=== PATIENT | female | born 1990 | race Caucasian/White ===

== ENCOUNTER → 2024-10-31 | Outpatient (CLI) | payer OTHER, SELFPAY ==
[2024-10-31 17:16] LABS: Barbiturate Urine NEGATIVE (< 200 ng/mL); Benzodiazepine Urine NEGATIVE (< 200 ng/mL); PCP Urine NEGATIVE (< 25 ng/mL); THC Urine NEGATIVE (< 50 ng/mL)
[2024-11-04 21:08] LABS: Chlamydia By Nucleic Acid AMP Negative (Negative); Gonococcus By Nucleic Acid AMP Negative (Negative)
== END | disposition home or self-care (01) ==
LOC: LABSPEC 16:14
PROVIDERS: PCP Family Medicine Geriatric Medicine; Visit Provider Advanced Practice Midwife
DX: O09.90 Supervision of high risk pregnancy, unspecified, unspecified trimester (principal); O99.320 Drug use complicating pregnancy, unspecified trimester; F12.90 Cannabis use, unspecified, uncomplicated; Z3A.00 Weeks of gestation of pregnancy not specified
CPT/HCPCS: 80307; 87086; 87088; 87491; 87591

== ENCOUNTER → 2024-11-11 | Outpatient (CLI) | payer OTHER, SELFPAY ==
[2024-11-11 16:40] LABS: Hematocrit 36.9 % (37-47); Hemoglobin 12.5 g/dL (12.0-15.0); Immature Granulocytes Count 0.060 X10^3/uL (0.0-0.0); Mean Corp Hgb Conc 33.9 g/dL (32-36); Mean Corpuscular Volume 86.0 fL (81-99); Mean Platelet Vol. 10.8 fl (6.2-12.0); NRBC Flagged by Analyzer 0 % (0-5); Platelet Count 270 K/mm3 (150-450); RBC Distribution Width CV 13.2 % (11.6-14.6); RBC Distribution Width SD 41.0 fl (35.1-43.9); Red Blood Count 4.29 M/mm3 (4.2-5.4); White Blood Count 11.7 K/mm3 (4.4-11.0)
[2024-11-11 19:24] LABS: HIV Nonreactive (Nonreactive); Hepatitis B Surface Antigen Nonreactive (Nonreactive); Hepatitis C Antibody Nonreactive (Nonreactive); Syphilis Antibodies Nonreactive (Nonreactive)
== END | disposition home or self-care (01) ==
PROVIDERS: PCP Family Medicine Geriatric Medicine; Visit Provider Advanced Practice Midwife
DX: O09.90 Supervision of high risk pregnancy, unspecified, unspecified trimester (principal); Z3A.00 Weeks of gestation of pregnancy not specified
CPT/HCPCS: 36415; 85025; 86703; 86762; 86780; 86803; 86850; 86900; 86901; 87340

== ENCOUNTER → 2025-03-11 | Outpatient (CLI) | payer OTHER, SELFPAY ==
--- OUTSIDE RECORDS SUMMARY | 2025-03-11 09:40 | XMS RPT_ITS | CCD ---
Author Organization [facility] Care Team Providers Care Area Coordinator Name Role Phone Norman Cervantes PA-C Unavailable Bebeto Iglesias, Shad Marrero Primary Care Provider Unavailable Primary Care Provider Shala Tate Jr., Shad Marrero Primary Care Provider Bebeto SIMPSON, Dr. Marrero Primary Care Provider Bebeto SIMPSON, Dr. Marrero Attending Provider [phone] Bebeto SIMPSON, Dr. Marrero Referring Provider Dr. Shagufta Berumen MD Attending Provider Ghazala Dee CNM Attending Provider Bebeto SIMPSON, Dr. Marrero Primary Care Provider [phone] Bebeto SIMPSON, Dr. Marrero Primary Care Physician Dr. Shagufta Berumen MD Attending Physician Ghazala Dee CNM Attending Physician [phone] Emilie Riggs DO Attending Physician MARCUS LEE Attending Unavailable SHAGUFTA BERUMEN Referring UnavailRosalinda Anthony Primary Care Unavailable Bin CASH APPLICATION CLERK-CTrista Attending Physician [phone] Ghazala Dee Attending Unavailable Janes Tate Primary Care Unavailable Janes Tate Referring Unavailable Janes Tate Primary Care Unavailable Emilie Riggs Attending UnavailShagufta Whitt Attending Unavailable Janes Tate Referring Unavailable Janes Tate Primary Care Unavailable Janes Tate Primary Care Unavailable Janes Tate Attending Unavailable Janes Tate Referring Unavailable Janes Tate Primary Care Unavailable Trista Steward NP Attending Unavailable Bebeto, Janes Referring Unavailable Ghazala Dee Attending Unavailable Janes Tate Primary Care Unavailable Ghazala Dee Attending Unavailable Janes Tate Referring Unavailable Janes Tate Primary Care Unavailable Janes Tate Referring Unavailable Bebeto, Janes Primary Care Unavailable Shagufta Berumen Attending Unavailable Ghazala Dee Attending Unavailable Bebeto, Janes Primary Care Unavailable Medications Current Medications Medication Drug Class(es) Dates Sig (Normalized) Sig (Original) Breast Pump device (1 source) Start: 01-16-2025 Breast Pump device Active 0 .ROUTE .MEDSUPPLY 1 0 January 16, 2025 12:00am As directed docosahexaenoic acid 200 mg oral capsule (7 sources) Start: 10-18-2024 Docosahexaenoic Acid ( Dha) 200 mg capsule Active mg PO October 18, 2024 12:00am Complies with drug therapy drospirenone / Ethinyl Estradiol (8 sources) Progestin, Estrogen Start: 08-12-2024 take 1 tablet by mouth once daily LO-ZUMANDIMINE, 28, 3-0.02 mg per tablet Indications: Encounter for surveillance of contraceptive pills TAKE ONE TABLET BY MOUTH DAILY, take active tablets only for continuous use, no placebos 112 tablet 08/12/2024 Active Start: 07-19-2023 End: 08-12-2024 take 1 tablet by mouth once daily, then take 1 tablet by mouth once daily Drospirenone-Ethinyl Estradiol (JON 28) 3-0.02 mg per tablet Indications: Encounter for surveillance of contraceptive pills Take 1 tablet by mouth once daily. TAKE 1 active TABLET BY MOUTH ONCE DAILY for continuous use; no placebos 112 tablet 3 07/19/2023 08/12/2024 Discontinued Start: 07-19-2023 take 1 tablet by cholo th once daily, then take 1 tablet by mouth once daily Drospirenone-Ethinyl Estradiol (JON 28) 3-0.02 mg per tablet Indications: Encounter for surveillance of contraceptive pills Take 1 tablet by mouth once daily. TAKE 1 active TABLET BY MOUTH ONCE DAILY for continuous use; no placebos 112 tablet 3 07/19/2023 Active Start: 07-13-2022 End: 07-19-2023 take 1 tablet by mouth once daily, then take 1 tablet by mouth once daily Drospirenone-Ethinyl Estradiol (JON 28) 3-0.02 mg per tablet Indications: Encounter for surveillance of contraceptive pills Take 1 tablet by mouth once daily. TAKE 1 active TABLET BY MOUTH ONCE DAILY for continuous use; no placebos 112 tablet 3 07/13/2022 07/19/2023 Discontinued Start: 07-13-2022 take 1 tablet by cholo th once daily, then take 1 tablet by mouth once daily Drospirenone-Ethinyl Estradiol (JON 28) 3-0.02 mg per tablet Indications: Encounter for surveillance of contraceptive pills Take 1 tablet by mouth once daily. TAKE 1 active TABLET BY MOUTH ONCE DAILY for continuous use; no placebos 112 tablet 3 07/13/2022 Active Start: 05-27-2022 End: 07-13-2022 take 1 tablet by mouth once daily Drospirenone-Ethinyl Estradiol (JON 28) 3-0.02 mg per tablet Indications: Encounter for surveillance of contraceptive pills TAKE 1 TABLET BY MOUTH ONCE DAILY 84 tablet 0 05/27/2022 07/13/2022 Discontinued Start: 05-27-2022 take 1 tablet by cholo th once daily Drospirenone-Ethinyl Estradiol (JON 28) 3-0.02 mg per tablet Indications: Encounter for surveillance of contraceptive pills TAKE 1 TABLET BY MOUTH ONCE DAILY 84 tablet 0 05/27/2022 Active Start: 05-19-2021 End: 05-27-2022 take 1 tablet by mouth once daily Drospirenone-Ethinyl Estradiol (JON 28) 3-0.02 mg per tablet Indications: Encounter for surveillance of contraceptive pills Take 1 tablet by mouth once daily. 84 tablet 3 05/19/2021 05/27/2022 Discontinued Comment on above: TAKE 1 TABLET BY CHOLO TH ONCE DAILY Take 1 tablet by cholo th once daily. Take 1 tablet by cholo th once daily. TAKE 1 active TABLET BY MOUTH ONCE DAILY for continuous use; no placebos Completed/Discontinued Medications Medication Drug Class(es) Dates Sig (Normalized) Sig (Original) amoxicillin 875 mg / clavulanate 125 mg oral tablet (1 source) Penicillin-class Antibacterial Start: 04-28-2023 End: 07-19-2023 take 1 tablet by mouth every twelve hours amoxicillin-clavu lanate potassium (AUGMENTIN) 875-125 mg per tablet Take 1 tablet by mouth every 12 hours. 0 04/28/2023 07/19/2023 Discontinued Comment on above: Take 1 tablet by cholo th every 12 hours. amphetamine aspartate 2.5 mg / amphetamine sulfate 2.5 mg / dextroamphetamine saccharate 2.5 mg / dextroamphetamine sulfate 2.5 mg oral tablet (10 sources) Central Nervous System Stimulant Start: 08-23-2024 End: 10-18-2024 take 1 tablet by mouth once daily Dextroamphetamine -Amphetamine (Adderall) 10 mg tablet Discontinued 10 mg PO daily 0 August 23, 2024 12:00am October 18, 2024 8:24am Start: 07-04-2022 take 1 tablet by cholo th twice daily dextroamphetamine-amphetamine (ADDERALL) 10 mg tablet Take 1 tablet by mouth twice daily. 07/04/2022 Active Comment on above: Take 1 tablet by cholo th twice daily. chlorhexidine gluconate 1.2 mg/ml mouthwash (2 sources) Start: 06-28-2022 End: 07-19-2023 Chlorhexidine Gluconate (PERIDEX) 0.12 % solution RINSE MOUTH WITH 1/2 OUNCE TWICE DAILY AFTER BREAKFAST AND BEFORE BEDTIME. SPIT OUT DO NOT SWALLOW. 0 06/28/2022 07/19/2023 Discontinued Comment on above: RINSE MOUTH WITH 1/2 OUNCE TWICE DAILY AFTER BREAKFAST AND BEFORE BEDTIME. SPIT OUT DO NOT SWALLOW. Multivitamin tablet (7 sources) Start: 08-23-2024 End: 10-18-2024 Multivitamin tablet Discontinued 1 {tbl} PO daily August 23, 2024 12:00am October 18, 2024 8:25am Problems Active Problems Problem Classification Problem Date Documented Date Episodic/Chronic Attention-deficit, conduct, and disruptive behavior disorders (20 sources) Attention deficit hyperactivity disorder; Translations: [Attention-deficit hyperactivity disorder, unspecified type] 10-18-2024 Chronic Comment on above: Stopped Adderall 6/2 4 (was on 5mg) Attention-deficit, conduct, and disruptive behavior disorders (1 source) Attention-deficit hyperactivity disorder, unspecified type; Translations: [Attention-deficit hyperactivity disorder, unspecified type] Onset: 11-29-2024 Chronic Contraceptive and procreative management (4 sources) Oral contraception; Translations: [Encounter for surveillance of contraceptive pills] Episodic Hemorrhage during ; abruptio placenta; placenta previa (3 sources) Low lying placenta; Translations: [Low lying placenta NOS or without hemorrhage, second trimester] Onset: 02-10-2025 01-16-2025 Episodic Comment on above: <1cm from os. Pelvic rest. Rpt US MFM 28 wk Menstrual disorders (3 sources) Irregular periods; Translations: [Irregular menstruation, unspecified] Onset: 10-18-2024 Chronic Other complications of (20 sources) High risk ; Translations: [Supervision of high risk , unspecified, unspecified trimester] 10-18-2024 Episodic Comment on above: , LV 06/03, Hus band: Janes PRR, , LV 06/03 , : Janes PRR, , girl LV 06/03, : Janes Other complications of (1 source) Supervision of high risk , unspecified, second trimester; Translations: [Supervision of high risk , unspecified, second trimester] Onset: 02-10-2025 Episodic Other complications of (1 source) Supervision of high risk , unspecified, unspecified trimester; Translations: [Supervision of high risk , unspecified, unspecified trimester] Onset: 11-29-2024 Episodic Other female genital disorders (1 source) Vaginal discharge; Translations: [Other specified noninflammatory disorders of vagina] 07-19-2023 Episodic Other and delivery including normal (20 sources) ; Translations: [Encounter for supervision of normal , unspecified, unspecified trimester] Onset: 2024 10-31-2024 Episodic Comment on above: Discussed genetic/ca rrier testing - desires genetic w/gender, undecided on carrier NIPT low risk girl, Carrier neg. Other screening for suspected conditions (not mental disorders or infectious disease) (9 sources) Cancer cervix screening status; Translations: [Encounter for screening for malignant neoplasm of cervix] Episodic Comment on above: neg pap and HPV 07/28 Residual codes; unclassified (1 source) Lifestyle; Translations: [Other problems related to lifestyle] 07-19-2023 Episodic Residual codes; unclassified (1 source) 23 weeks gestation of ; Translations: [23 weeks gestation of ] Onset: 02-10-2025 Episodic Residual codes; unclassified (1 source) 13 weeks gestation of ; Translations: [13 weeks gestation of ] Onset: 11-29-2024 Episodic Substance-related disorders (20 sources) Marijuana user; Translations: [Cannabis use, unspecified, uncomplicated] Onset: 02-10-2025 10-18-2024 Episodic Comment on above: Stopped; Last gummy 09/28. Random tox screen ordered Past or Other Problems Problem Classification Problem Date Documented Date Episodic/Chronic Residual codes; unclassified (1 source) 9 weeks gestation of ; Translations: [9 weeks gestation of ] Onset: 10-31-2024 Episodic Viral infection (19 sources) Oral herpes simplex infection; Translations: [Herpesviral gingivostomatitis and pharyngotonsillitis] Onset: 10-31-2024 10-18-2024 Episodic Results Test Name Value Interpretation Reference Range Facility Automotive Designer Office Visit Reporton 02-10-2025 Automotive Designer Office Visit Report [facility] [address], [address] [place] [address] OFFICE VISIT Date of Service: 02/10/25 MR#: [id number] Acct: [id number] Name: PENNIE NOLAND Rep #: [id number] : 1990 Provider: ANANT Renee ams Age/Sex: 34/F Location: [facility] Status: Signed Intake Vital Signs 11/29/24 08:49 12/26/24 14:34 01/16/25 14:03 02/10/25 14:58 02/10/25 15:00 Height 5 ft 9 in 5 ft 9 in 5 ft 9 in 5 ft 9 in 5 ft 9 in Weight: 183 lb 6 oz BMI 27.1 BP 120/75 Intake Visit Reasons: 23wk6d ob Traffic Control Operator Required: No Is patient in pain?: No Allergies No Known Allergies Allergy (Verified 02/10/25 14:58) Medications ???Medication ???Instructions ???Recorded ???Confirmed ???Type docosahexaenoic acid 200 mg mg PO 10/18/24 02/10/25 History capsule ( DHA) breast pump #1 ea 01/16/25 02/10/25 Rx Last Menstrual Period: 08/27/24 Zika: Zika virus screening: Negative : No PFSH PFSH Medical History ADHD Oral herpes Surgical History Wapella teeth removed Family History Mother Alcoholism Depression Suicide attempt Grandmother Alcoholism Brother Oral cancer Asthma Aunt Skin cancer Grandfather Skin cancer Social History adopted: No household members: spouse number of children: 0 current occupational status: employed 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/hazards: No pets and animals: No history of recent travel: Yes ([place] - frequent) out of state: Yes out of country: No sexually active: Yes Smoking Status: Never smoker second hand exposure: Yes (employee's at work) alcohol intake: current alcohol intake frequency: holidays/special occasions only details: Not while substance use type: marijuana diet: lactose free well-balanced diet: daily or most days caffeine: Yes (V8 energy ) Type: coffee eating out: 1-3 times/week during the past year weight has: remained stable what type of physical activity do you participate in: walking and other details: gym - crossfit frequency: 3-4 times per week duration: 15-30 minutes/day ravin/roman catholic: None seatbelt use: always do you feel safe at home: Yes additional social history: : Janes Guzman History 1 Elective abortions 0 Hx Para 0 Spontaneous abortions 0 Hx # Term Pregnancies Ectopic pregnancies Hx # Pregnancies Multiple births # of living children 0 HPI 23wk6d ob Details: PENNIE NOLAND is a 34 year old who presents for routine OB visit. OB Visit LV Calculator Estimated Delivery Date Method Current WG Current Estimate 06/03/25 LMP (Certain) 23w 6d Other Estimates 06/06/25 Ultrasound #1 23w 3d Expected Delivery Route/Plan Labor Preferences- CB/BF classes: [] labor support person: [] labor intervention preferences: [] pain management options preferred: [] cut cord/dad catch: [] : [] PP control planned: [] discussed possible routes of delivery and associated risks: [] special requests: [] Specific Issue/Plans Covid status: [] Flu vaccine: [] Tdap vaccine: [] Rhogam: [] LARC form signed: [] Problem list reviewed and updated with the most current plan of care details and appropriate orders placed. Relevant counseling for the gestational age provided. Continue routine care and follow up unless otherwise noted in visit notes/problem list details Initial Weight: 170 lb Date -???-???-???-???-?? ?-???-???-???-???-? ??-???-???- EGA Weight BP Urine Prot -???-???-???-???-?? ?-???-???-???-???-? ??-???-???- Glucose FHR FuHt Pres Dilation -???-???-???-???-?? ?-???-???-???-???-? ??-???-???- Effaced St Visit Note 10/31/24 -???-???-???-???-?? ?-???-???-???-???-? ??-???-???- 9w 2d 170 lb 8 oz (+8 oz) 124/80 -???-???-???-???-?? ?-???-???-???-???-? ??-???-???- 173 -???-???-???-???-?? ?-???-???-???-???-? ??-???-???- KW- CRL 2.07 and cons with dates. accepts NIPT 11/29/24 -???-???-???-???-?? ?-???-???-???-???-? ??-???-???- 13w 3d 174 lb 4 oz (+4 lb 4 oz) 114/65 Negative -???-???-???-???-?? ?-???-???-???-???-? ??-???-???- Negative 150 -???-???-???-???-?? ?-???-???-???-???-? ??-???-???- SM- no vb cr amping 12/26/24 -???-???-???-???-?? ?-???-???-???-???-? ??-???-???- 17w 2d 177 lb 9 oz (+7 lb 9 oz) 118/79 Negative -???-???-???-???-?? ?-???-???-???-???-? ??-???-???- Negative 147 -???-???-???-???-?? ?-???-???-???-???-? ??-???-???- JV- feeling some fluttering and has some numbness on the right. going to [place] (more content not included)... Normal [facility] - Chemistry and C hemistry - challengeOrdered By: Trista Steward on 01-16-2025 Glucose Ql (U) Negative [facility] - UrinalysisOrder ed By: Trista Steward on 01-16-2025 Protein Ql (U) Negative [facility] Automotive Designer Office Visit Reporton 01-16-2025 Automotive Designer Office Visit Report [facility] [address], [address] [place] [address] OFFICE VISIT Date of Service: 01/16/25 MR#: [id number] Acct: [id number] Name: LUDINPENNIE M Rep #: [id number] : 1990 Provider: BRANDEN montesinos Age/Sex: 34/F [facility] Status: Signed Intake Vital Signs 11/29/24 08:49 12/26/24 14:34 01/16/25 14:03 Height 5 ft 9 in 5 ft 9 in 5 ft 9 in Weight: 180 lb 4 oz BMI 26.6 BP 114/78 Intake Visit Reasons: 20wk2d ob Traffic Control Operator Required: No Is patient in pain?: No Allergies No Known Allergies Allergy (Unverified 01/16/25 14:03) Medications ???Medication ???Instructions ???Recorded ???Confirmed ???Type docosahexaenoic acid 200 mg mg PO 10/18/24 01/16/25 History capsule ( DHA) breast pump #1 ea 01/16/25 01/16/25 Rx Last Menstrual Period: 08/27/24 Zika: Zika virus screening: Negative : No PFSH PFSH Medical History ADHD Oral herpes Surgical History Wapella teeth removed Family History Mother Alcoholism Depression Suicide attempt Grandmother Alcoholism Brother Oral cancer Asthma Aunt Skin cancer Grandfather Skin cancer Social History adopted: No household members: spouse number of children: 0 current occupational status: employed 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/hazards: No pets and animals: No history of recent travel: Yes ([place] - frequent) out of state: Yes out of country: No sexually active: Yes Smoking Status: Never smoker second hand exposure: Yes (employee's at work) alcohol intake: current alcohol intake frequency: holidays/special occasions only details: Not while substance use type: marijuana diet: lactose free well-balanced diet: daily or most days caffeine: Yes (V8 energy ) Type: coffee eating out: 1-3 times/week during the past year weight has: remained stable what type of physical activity do you participate in: walking and other details: gym - crossfit frequency: 3-4 times per week duration: 15-30 minutes/day ravin/roman catholic: None seatbelt use: always do you feel safe at home: Yes additional social history: : [employer] History 1 Elective abortions 0 Hx Para 0 Spontaneous abortions 0 Hx # Term Pregnancies Ectopic pregnancies Hx # Pregnancies Multiple births # of living children 0 HPI 20wk2d ob Details: PENNIE NOLAND is a 34 year old who presents for routine OB visit. OB Visit LV Calculator Estimated Delivery Date Method Current WG Current Estimate 06/03/25 LMP (Certain) 20w 2d Other Estimates 06/06/25 Ultrasound #1 19w 6d Expected Delivery Route/Plan Labor Preferences- CB/BF classes: [] labor support person: [] labor intervention preferences: [] pain management options preferred: [] cut cord/dad catch: [] : [] PP control planned: [] discussed possible routes of delivery and associated risks: [] special requests: [] Specific Issue/Plans Covid status: [] Flu vaccine: [] Tdap vaccine: [] Rhogam: [] LARC form signed: [] Problem list reviewed and updated with the most current plan of care details and appropriate orders placed. Relevant counseling for the gestational age provided. Continue routine care and follow up unless otherwise noted in visit notes/problem list details Initial Weight: 170 lb Date -???-???-???-???-?? ?-???-???-???-???-? ??-???-???- EGA Weight BP Urine Prot -???-???-???-???-?? ?-???-???-???-???-? ??-???-???- Glucose FHR FuHt Pres Dilation -???-???-???-???-?? ?-???-???-???-???-? ??-???-???- Effaced St Visit Note 10/31/24 -???-???-???-???-?? ?-???-???-???-???-? ??-???-???- 9w 2d 170 lb 8 oz (+8 oz) 124/80 -???-???-???-???-?? ?-???-???-???-???-? ??-???-???- 173 -???-???-???-???-?? ?-???-???-???-???-? ??-???-???- KW- CRL 2.07 and cons with dates. accepts NIPT 11/29/24 -???-???-???-???-?? ?-???-???-???-???-? ??-???-???- 13w 3d 174 lb 4 oz (+4 lb 4 oz) 114/65 Negative -???-???-???-???-?? ?-???-???-???-???-? ??-???-???- Negative 150 -???-???-???-???-?? ?-???-???-???-???-? ??-???-???- SM- no vb cr amping 12/26/24 -???-???-???-???-?? ?-???-???-???-???-? ??-???-???- 17w 2d 177 lb 9 oz (+7 lb 9 oz) 118/79 Negative -???-???-???-???-?? ?-???-???-???-???-? ??-???-???- Negative 147 -???-???-???-???-?? ?-???-???-???-???-? ??-???-???- JV- feeling some fluttering and has some numbness on the right. going to [place] for a 'baby [place] 01/16/25 -???-???-? (more content not included)... Normal [facility] - Chemistry and C hemistry - challengeOrdered By: Emilie Up on 12-26-2024 Glucose Ql (U) Negative [facility] - UrinalysisOrder ed By: Emilie Jeovanny on 12-26-2024 Protein Ql (U) Negative [facility] Automotive Designer Office Visit Reporton 12-26-2024 Automotive Designer Office Visit Report [facility], [address] [place] [address] OFFICE VISIT Date of Service: 12/26/24 MR#: [id number] Acct: [id number] Name: PENNIE NOLAND Marcellus Rep #: [id number] : 1990 Provider: Dr. Emilie Rodriguez DO Age/Sex: 34/F Location: [facility] Status: Signed Intake Vital Signs 10/31/24 12:57 11/29/24 08:49 12/26/24 14:34 Height 5 ft 9 in 5 ft 9 in 5 ft 9 in Weight: 177 lb 9 oz BMI 26.2 BP 118/79 Intake Visit Reasons: 17 wk ob Chief Complaint: 17 Week OB Traffic Control Operator Required: No Is patient in pain?: No Allergies No Known Allergies Allergy (Unverified 12/26/24 14:34) Medications ???Medication ???Instructions ???Recorded ???Confirmed ???Type docosahexaenoic acid 200 mg mg PO 10/18/24 12/26/24 History capsule ( DHA) Last Menstrual Period: 08/27/24 Zika: Zika virus screening: Negative : No PFSH PFSH Medical History ADHD Oral herpes Surgical History Wapella teeth removed Family History Mother Alcoholism Depression Suicide attempt Grandmother Alcoholism Brother Oral cancer Asthma Aunt Skin cancer Grandfather Skin cancer Social History adopted: No household members: spouse number of children: 0 current occupational status: employed 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 occupational 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/hazards: No pets and animals: No history of recent travel: Yes ([place] - frequent) out of state: Yes out of country: No sexually active: Yes Smoking Status: Never smoker second hand exposure: Yes (employee's at work) alcohol intake: current alcohol intake frequency: holidays/special occasions only details: Not while substance use type: marijuana diet: lactose free well-balanced diet: daily or most days caffeine: Yes (V8 energy ) Type: coffee eating out: 1-3 times/week during the past year weight has: remained stable what type of physical activity do you participate in: walking and other details: gym - crossfit frequency: 3-4 times per week duration: 15-30 minutes/day ravin/roman catholic: None seatbelt use: always do you feel safe at home: Yes additional social history: : Janes Guzman History 1 Elective abortions 0 Hx Para 0 Spontaneous abortions 0 Hx # Term Pregnancies Ectopic pregnancies Hx # Pregnancies Multiple births # of living children 0 HPI 17 wk ob Details: PENNIE REDMOND is a 34 year old who presents for routine OB visit. OB Visit LV Calculator Estimated Delivery Date Method Current WG Current Estimate 06/03/25 LMP (Certain) 17w 2d Other Estimates 06/06/25 Ultrasound #1 16w 6d Expected Delivery Route/Plan Labor Preferences- CB/BF classes: [] labor support person: [] labor intervention preferences: [] pain management options preferred: [] cut cord/dad catch: [] : [] PP control planned: [] discussed possible routes of delivery and associated risks: [] special requests: [] Specific Issue/Plans Covid status: [] Flu vaccine: [] Tdap vaccine: [] Rhogam: [] LARC form signed: [] Problem list reviewed and updated with the most current plan of care details and appropriate orders placed. Relevant counseling for the gestational age provided. Continue routine care and follow up unless otherwise noted in visit notes/problem list details Initial Weight: 170 lb Date -???-???-???-???-?? ?-???-???-???-???-? ??-???-???- EGA Weight BP Urine Prot -???-???-???-???-?? ?-???-???-???-???-? ??-???-???- Glucose FHR FuHt Pres Dilation -???-???-???-???-?? ?-???-???-???-???-? ??-???-???- Effaced St Visit Note 10/31/24 -???-???-???-???-?? ?-???-???-???-???-? ??-???-???- 9w 2d 170 lb 8 oz (+8 oz) 124/80 -???-???-???-???-?? ?-???-???-???-???-? ??-???-???- 173 -???-???-???-???-?? ?-???-???-???-???-? ??-???-???- KW- CRL 2.07 and cons with dates. accepts NIPT 11/29/24 -???-???-???-???-?? ?-???-???-???-???-? ??-???-???- 13w 3d 174 lb 4 oz (+4 lb 4 oz) 114/65 Negative -???-???-???-???-?? ?-???-???-???-???-? ??-???-???- Negative 150 -???-???-???-???-?? ?-???-???-???-???-? ??-???-???- SM- no vb cr amping 12/26/24 -???-???-???-???-?? ?-???-???-???-???-? ??-???-???- 17w 2d 177 lb 9 oz (+7 lb 9 oz) 118/79 Negative -???-???-???-???-?? ?-???-???-???-???-? ??-???-???- Negative 147 -???-???-???-???-?? ?-???-???-???-???-? ??-???-???- JV- feeling some fluttering and has some numbness on the right. going to [place] for a 'baby longoria ACOG First Trimeste (more content not included)... Normal [facility] - Chemistry and C hemistry - challengeOrdered By: Shagufta Berumen on 11-29-2024 Glucose Ql (U) Negative [facility] - UrinalysisOrder ed By: Shagufta Berumen on 11-29-2024 Protein Ql (U) Negative [facility] [employer]er Office Visit Reporton 11-29-2024 Automotive Designer Office Visit Report [facility] [address], [address] [place] [address] OFFICE VISIT Date of Service: 11/29/24 MR#: [id number] Acct: [id number] Name: PENNIE REDMOND Rep #: [id number] : 1990 Provider: Dr. Shagufta mott MD Age/Sex: 34/F Location: [facility] Status: Signed Intake Vital Signs 10/31/24 12:57 11/29/24 08:49 Height 5 ft 9 in 5 ft 9 in Weight: 174 lb 4 oz BMI 25.7 BP 114/65 Intake Visit Reasons: 13wk OB Traffic Control Operator Required: No Is patient in pain?: No Allergies No Known Allergies Allergy (Unverified 11/29/24 08:55) Medications ???Medication ???Instructions ???Recorded ???Confirmed ???Type docosahexaenoic acid 200 mg mg PO 10/18/24 11/29/24 History capsule ( DHA) Last Menstrual Period: 08/27/24 Zika: Zika virus screening: Negative : No PFSH PFSH Medical History (Updated 11/29/24 @ 09:[address] 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/hazards: No pets and animals: No history of recent travel: Yes ([place] - frequent) out of state: Yes out of country: No sexually active: Yes Smoking Status: Never smoker second hand exposure: Yes (employee's at work) alcohol intake: current alcohol intake frequency: holidays/special occasions only details: Not while substance use type: marijuana diet: lactose free well-balanced diet: daily or most days caffeine: Yes (V8 energy ) Type: coffee eating out: 1-3 times/week during the past year weight has: remained stable what type of physical activity do you participate in: walking and other details: gym - crossfit frequency: 3-4 times per week duration: 15-30 minutes/day ravin/roman catholic: None seatbelt use: always do you feel safe at home: Yes additional social history: : Janes Guzman History 1 Elective abortions 0 Hx Para 0 Spontaneous abortions 0 Hx # Term Pregnancies Ectopic pregnancies Hx # Pregnancies Multiple births # of living children 0 HPI 13wk OB Details: PENNIE REDMOND is a 34 year old who presents for routine OB visit. OB Visit LV Calculator Estimated Delivery Date Method Current WG Current Estimate 06/03/25 LMP (Certain) 13w 3d Other Estimates 06/06/25 Ultrasound #1 13w 0d Expected Delivery Route/Plan Labor Preferences- CB/BF classes: [] labor support person: [] labor intervention preferences: [] pain management options preferred: [] cut cord/dad catch: [] : [] PP control planned: [] discussed possible routes of delivery and associated risks: [] special requests: [] Specific Issue/Plans Covid status: [] Flu vaccine: [] Tdap vaccine: [] Rhogam: [] LARC form signed: [] Problem list reviewed and updated with the most current plan of care details and appropriate orders placed. Relevant counseling for the gestational age provided. Continue routine care and follow up unless otherwise noted in visit notes/problem list details Initial Weight: 170 lb Date -???-???-???-???-?? ?-???-???-???-???-? ??-???-???- EGA Weight BP Urine Prot -???-???-???-???-?? ?-???-???-???-???-? ??-???-???- Glucose FHR FuHt Pres Dilation -???-???-???-???-?? ?-???-???-???-???-? ??-???-???- Effaced St Visit Note 10/31/24 -???-???-???-???-?? ?-???-???-???-???-? ??-???-???- 9w 2d 170 lb 8 oz (+8 oz) 124/80 -???-???-???-???-?? ?-???-???-???-???-? ??-???-???- 173 -???-???-???-???-?? ?-???-???-???-???-? ??-???-???- KW- CRL 2.07 and cons with dates. accepts NIPT 11/29/24 -???-???-???-???-?? ?-???-???-???-???-? ??-???-???- 13w 3d 174 lb 4 oz (+4 lb 4 oz) 114/65 Negative -???-???-???-???-?? ?-???-???-???-???-? ??-???-???- Negative 150 -???-???-???-???-?? ?-???-???-???-???-? ??-???-???- SM- no vb cr amping ACOG First Trimester First Trimester: Desire for , Alcohol, Tobacco Cessation, Illicit/Recreationa l Drug/Substance Use, Intimate Partner Violence, Barriers to care, Unstable Housing, Communication Bar riers, Environmental/Work Hazards, Anticipated Course of Care, Toxoplasmosis Precations, Use of Any medications, Sexual activity, Exercise, Dental Care, Sauna/Hot tub use, Seat Belt use, Chil (more content not included)... Normal [facility] Absolute lymphocyte countOrd ered By: Ghazala Dee on 11-11-2024 Lymphocytes Auto (Unsp spec) [#/Vol] 3.02 10*3/uL 0.83-4.51 [facility] Absolute neutrophil countOrd ered By: Ghazala Dee on 11-11-2024 Neutrophils (Bld) [#/Vol] 7.6 10*3/uL 2.0-7.7 [facility] Automated lymphocyte count a s percentage of total leukocytesOrdered By: Ghazala Dee on 11-11-2024 Lymphocytes/100 WBC Auto (Unsp spec) 25.9 % 19-41 [facility] Basophil percentageOrdered B y: Ghazala Dee on 11-11-2024 Basophils/100 WBC (Bld) 0.3 % 0-1 [facility] CBC W/Diff, Automatedon Absolute Lymph 3.02 X10 3/uL Normal 0.83-4.51 [facility] Comment on above: Performed By: #### L 509.8002, BTS, L3890.6301, L100.0100, L3890.6102, L900.0098, L509.4006, L3890.6006 #### [facility] [address] [place], [address] Absolute Neut 7.6 X10 3/uL Normal 2.0-7.7 [facility] Comment on above: Performed By: #### L 509.8002, BTS, L3890.6301, L100.0100, L3890.6102, L900.0098, L509.4006, L3890.6006 #### [facility] [address] [place], [address] Basophils/100 WBC (Bld) 0.3 % Normal 0-1 [facility] Comment on above: Performed By: #### L 509.8002, BTS, L3890.6301, L100.0100, L3890.6102, L900.0098, L509.4006, L3890.6006 #### [facility] [address] [place], [address] Eosinophils/100 WBC (Bld) 0.9 % Normal 0-5 [facility] Comment on above: Performed By: #### L 509.8002, BTS, L3890.6301, L100.0100, L3890.6102, L900.0098, L509.4006, L3890.6006 #### [facility] [address] [place], [address] Erythrocyte distribution width (RBC) [Ratio] 13.2 % Normal 11.6-14.6 [facility] Comment on above: Performed By: #### L 509.8002, BTS, L3890.6301, L100.0100, L3890.6102, L900.0098, L509.4006, L3890.6006 #### [facility] [address] [place], [address] Hematocrit (Bld) [Volume fraction] 36.9 % Low 37-47 [facility] Comment on above: Performed By: #### L 509.8002, BTS, L3890.6301, L100.0100, L3890.6102, L900.0098, L509.4006, L3890.6006 #### [facility] [address] [place], [address] Hemoglobin (Bld) [Mass/Vol] 12.5 g/dL Normal 12.0-15.0 [facility] Comment on above: Performed By: #### L 509.8002, BTS, L3890.6301, L100.0100, L3890.6102, L900.0098, L509.4006, L3890.6006 #### [facility] [address] [place], [address] IG% 0.500 Normal 0.0-0.9 [facility] Comment on above: Result Comment: IG% - Immature Granulocytes (promyelocytes, myelocytes and metamyelocytes) > 1% indicates that a LEFT SHIFT is Present. Performed By: #### L 509.8002, BTS, L3890.6301, L100.0100, L3890.6102, L900.0098, L509.4006, L3890.6006 #### [facility] [address] [place], [address] Lymphocytes/100 WBC (Bld) 25.9 % Normal 19-41 [facility] Comment on above: Performed By: #### L 509.8002, BTS, L3890.6301, L100.0100, L3890.6102, L900.0098, L509.4006, L3890.6006 #### [facility] [address] [place], [address] MCH (RBC) [Entitic mass] 29.1 pg Normal 27.0-32.0 [facility] Comment on above: Performed By: #### L 509.8002, BTS, L3890.6301, L100.0100, L3890.6102, L900.0098, L509.4006, L3890.6006 #### [facility] [address] [place], [address] MCHC (RBC) [Mass/Vol] 33.9 g/dL Normal 32-36 [facility] Comment on above: Performed By: #### L 509.8002, BTS, L3890.6301, L100.0100, L3890.6102, L900.0098, L509.4006, L3890.6006 #### [facility] [address] [place], [address] MCV (RBC) [Entitic vol] 86.0 fL Normal 81-99 [facility] Comment on above: Performed By: #### L 509.8002, BTS, L3890.6301, L100.0100, L3890.6102, L900.0098, L509.4006, L3890.6006 #### [facility] [address] [place], [address] Monocytes/100 WBC (Bld) 7.5 % Normal 0-10 [facility] Comment on above: Performed By: #### L 509.8002, BTS, L3890.6301, L100.0100, L3890.6102, L900.0098, L509.4006, L3890.6006 #### [facility] [address] [place], [address] Neutrophils/100 WBC (Bld) 64.9 % Normal 47-70 [facility] Comment on above: Performed By: #### L 509.8002, BTS, L3890.6301, L100.0100, L3890.6102, L900.0098, L509.4006, L3890.6006 #### [facility] [address] [place], [address] Nucleated RBC (Bld) [#/Vol] 0 10*3/uL Normal 0-5 [facility] Comment on above: Performed By: #### L 509.8002, BTS, L3890.6301, L100.0100, L3890.6102, L900.0098, L509.4006, L3890.6006 #### [facility] [address] [place], [address] Platelet mean volume (Bld) [Entitic vol] 10.8 fL Normal 6.2-12.0 [facility] Comment on above: Performed By: #### L 509.8002, BTS, L3890.6301, L100.0100, L3890.6102, L900.0098, L509.4006, L3890.6006 #### [facility] [address] [place], [address] Platelets (Bld) [#/Vol] 270 10*3/uL Normal 150-450 [facility] Comment on above: Performed By: #### L 509.8002, BTS, L3890.6301, L100.0100, L3890.6102, L900.0098, L509.4006, L3890.6006 #### [facility] [address] [place], [address] RBC (Bld) [#/Vol] 4.29 10*6/uL Normal 4.2-5.4 [facility] Comment on above: Performed By: #### L 509.8002, BTS, L3890.6301, L100.0100, L3890.6102, L900.0098, L509.4006, L3890.6006 #### [facility] [address] [place], [address] RDW SD 41.0 fl Normal 35.1-43.9 [facility] Comment on above: Performed By: #### L 509.8002, BTS, L3890.6301, L100.0100, L3890.6102, L900.0098, L509.4006, L3890.6006 #### [facility] [address] [place], [address] WBC (Bld) [#/Vol] 11.7 10*3/uL High 4.4-11.0 [facility] Comment on above: Performed By: #### L 509.8002, BTS, L3890.6301, L100.0100, L3890.6102, L900.0098, L509.4006, L3890.6006 #### [facility] [address] [place], [address] Eosinophil percentageOrdered By: Ghazala Dee on 11-11-2024 Eosinophils/100 WBC (Bld) 0.9 % 0-5 [facility] Erythrocyte distribution wid th ratioOrdered By: Ghazala Dee on 11-11-2024 Erythrocyte distribution width (RBC) [Ratio] 13.2 % 11.6-14.6 [facility] Erythrocyte distribution wid th standard deviationOrdered By: Ghazala Dee on 11-11-2024 Erythrocyte distribution width (RBC) [Ratio] 41.0 fl 35.1-43.9 [facility] HIVon 11-11-2024 HIV Non-Reactive Normal Nonreactive [facility] Comment on above: Result Comment: Non- Reactive Reactive Repeatedly reactive samples must be confirmed according to CDC recommended confirmatory algorithms. The subresults for either HIVAG or AHIV can be used as an aid in the selection of the confirmation algorithm for reactive samples. Send out specimens with Reactive results to [facility] for confirmation. Order the HIV antibody detection and differentiation: lc#[id number] Performed By: #### L 509.8002, BTS, L3890.6301, L100.0100, L3890.6102, L900.0098, L509.4006, L3890.6006 ####[facility] [address] [place], [address] Hematocrit Auto (Bld) [Volum e fraction]Ordered By: Ghazala Dee on 11-11-2024 Hematocrit (Bld) [Volume fraction] 36.9 % Low 37-47 [facility] Hemoglobin measurementOrdere d By: Ghazala Dee on 11-11-2024 Hemoglobin (Bld) [Mass/Vol] 12.5 g/dL 12.0-15.0 [facility] Hepatitis C Antibodyon 11-11 Hepatitis C Ab Non-Reactive Normal Nonreactive [facility] Comment on above: Result Comment: Reac tive: Presumptive evidence of antibodies to HCV. Follow CDC recommendations for supplemental testing. Non-Reactive: Antibodies to HCV were not detected; does not exclude the possibility of exposure to HCV Reactive Results are presumptive evidence of antibodies to HCV. Follow CDC recommendations for supplemental testing. Order confirmation testing: HCV Quant by PCR testing - HCVPCR #[id number] Non Reactive: < 0.8 Equivocal: >/= 0.8 to < 1.0 Reactive: >/= 1.0 The [facility] requires that a reactive/equivocal HCV antibody result be sent out for confirmation. HCV Quant by PCR testing. Performed By: #### L 509.8002, BTS, L3890.6301, L100.0100, L3890.6102, L900.0098, L509.4006, L3890.6006 ####[facility] [address] [place], [address] Immature granulocytes/100 WB C Auto (Bld)Ordered By: Ghazala Dee on 11-11-2024 Immature granulocytes/100 WBC (Bld) 0.500 % 0.0-0.9 [facility] Comment on above: IG% - Immature Granu locytes (promyelocytes, myelocytes and metamyelocytes) > 1% indicates that a LEFT SHIFT is Present. L3890.6102on 11-11-2024 HEP B Surf Ag Non-Reactive Normal Nonreactive [facility] Comment on above: Result Comment: Reac tive: Presumptive evidence of HBV. Repeatedly reactive samples must be confirmed using a neutralization test ([employer] HBsAg Confirmatory Test) Non-Reactive: HBsAg not detected; does not exclude the possibility of exposure to HBV Performed By: #### L 509.8002, BTS, L3890.6301, L100.0100, L3890.6102, L900.0098, L509.4006, L3890.6006 ####[facility] [address] [place], [address] L509.4006on 11-11-2024 Rubella IgG REAC Normal Nonreactive [facility] Comment on above: Result Comment: Anti body Result: Interpretation Non-Reactive: Non-Immune Reactive: Immune The following results were obtained with the [employer] Rubella IgG assay. Results from assays of other manufacturers cannot be used interchangeably. Performed By: #### L 509.8002, BTS, L3890.6301, L100.0100, L3890.6102, L900.0098, L509.4006, L3890.6006 #### [facility] [address] [place], [place], [id number] Laboratory - Microbiology an d Antimicrobial susceptibilityOrdered By: Ghazala Dee on 11-11-2024 HBV surface Ag Ql (S) Non-Reactive Nonreactive [facility] Comment on above: Reactive: Presumptiv e evidence of HBV. Repeatedly reactive samples must be confirmed using a neutralization test ([employer] HBsAg Confirmatory Test)Non-Reactive: HBsAg not detected; does not exclude the possibility of exposure to HBV MCV (mean corpuscular volume ) determinationOrdered By: Ghazala Dee on 11-11-2024 MCV (RBC) [Entitic vol] 86.0 fL 81-99 [facility] Mean corpuscular hemoglobin (MCH) determinationOrdered By: Ghazala Dee on 11-11-2024 MCH (RBC) [Entitic mass] 29.1 pg 27.0-32.0 [facility] Mean corpuscular hemoglobin concentration (MCHC) determinationOrdered By: Ghazala Dee on 11-11-2024 MCHC (RBC) [Mass/Vol] 33.9 g/dL 32-36 [facility] Mean platelet volume determi nationOrdered By: Ghazala Dee on 11-11-2024 Platelet mean volume (Bld) [Entitic vol] 10.8 fL 6.2-12.0 [facility] Monocyte percentageOrdered B y: Ghazala Dee on 11-11-2024 Monocytes/100 WBC (Bld) 7.5 % 0-10 [facility] NATERAon 11-11-2024 NATURA SEE SCANNED REPORT Normal [facility] Comment on above: Performed By: #### L 509.8002, BTS, L3890.6301, L100.0100, L3890.6102, L900.0098, L509.4006, L3890.6006 #### [facility] [address] [place], [address] Neutrophil percentageOrdered By: Ghazala Dee on 11-11-2024 Neutrophils/100 WBC (Bld) 64.9 % 47-70 [facility] No Panel InformationOrdered By: Ghazala Dee on 11-11-2024 HIV (1&2) Antibody Non-Reactive Nonreactive [facility] Comment on above: Non-ReactiveReactive Repeatedly reactive samples must be confirmed according to CDC recommended confirmatory algorithms. The subresults for either HIVAG or AHIV can be used as an aid in the selection of the confirmation algorithm for reactive samples.Send out specimens with Reactive results to [facility] for confirmation.Order the HIV antibody detection and differentiation: #[id number] Nucleated red blood cell per centageOrdered By: Ghazala Dee on 11-11-2024 Nucleated RBC/100 WBC (Bld) [Ratio] 0 % 0-5 [facility] Platelet countOrdered By: Edgar Dee on 11-11-2024 Platelets (Bld) [#/Vol] 270 10*3/uL 150-450 [facility] RBC Auto (Bld) [#/Vol]Ordere d By: Ghazala Dee on 11-11-2024 RBC (Bld) [#/Vol] 4.29 10*6/uL 4.2-5.4 [facility] Syphilis Antibodieson 2024 Syphilis Abs Non-Reactive Normal Nonreactive [facility] Comment on above: Performed By: #### L 509.8002, BTS, L3890.6301, L100.0100, L3890.6102, L900.0098, L509.4006, L3890.6006 ####[facility] [address] [place], [address] Type AND Screenon 11-11-2024 Ab SCREEN GEL Negative Normal [facility] Comment on above: Order Comment: PN Performed By: #### L 509.8002, BTS, L3890.6301, L100.0100, L3890.6102, L900.0098, L509.4006, L3890.6006 #### [facility] [address] [place], [address] White blood cell (WBC) count Ordered By: Ghazala Dee on 11-11-2024 WBC (Bld) [#/Vol] 11.7 10*3/uL High 4.4-11.0 [facility] Chlamydia/GC JILLIAN aptimaon CHLAMY,NUC ACID Negative Normal Negative [facility] Comment on above: Performed By: #### L 505.5000, M100.2200, L7000.1800 #### [facility] [address] [place], [address] GC BY NUC ACID Negative Normal Negative [facility] Comment on above: Result Comment: Perf ormed at: =G - [facility] [address] [id number] Die Cutter: Maritza Becerril MD, Phone: [phone] Performed By: #### L 505.5000, M100.2200, L7000.1800 #### [facility] [address] [place], [address] Urine Cultureon 11-02-2024 URC Below infection level. Mixed Gram Positive Organisms [place] Count 1000-10,000 MIXC Mixed contaminants. Submit a new specimen if indicated. Normal [facility] Comment on above: Performed By: #### L 505.5000, M100.2200, L7000.1800 #### [facility] [address] [place], [address] Amphetamine detection with 1 000 ng/mL as cutoffOrdered By: Ghazala Dee on 10-31-2024 Amphetamines Screen method >1000 ng/mL Ql (U) Negative < 200 ng/mL [facility] Chlamydia trachomatis rRNA d etection by probe and target amplification methodOrdered By: Ghazala Dee on 10-31-2024 C. trachomatis rRNA JILILAN+probe Ql (Unsp spec) Negative Negative [facility] Neisseria gonorrhoeae nuclei c acid detection by amplified probe techniqueOrdered By: Ghazala Dee on 10-31-2024 N. 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 Status: Signed Intake Vital Signs 10/18/24 09:06 10/31/24 12:57 Height 5 ft 9 in 5 ft 9 in Weight: 170 lb 8 oz BMI 25.2 BP 124/80 H Intake Visit Reasons: *NEW* NOB LMP 08/27, LV 06/03 Chief Complaint: New OB Traffic Control Operator Required: No Is patient in pain?: No Allergies No Known Allergies Allergy (Unverified 10/31/24 13:02) Medications ???Medication ???Instructions ???Recorded ???Confirmed ???Type docosahexaenoic acid 200 mg mg PO 10/18/24 10/31/24 History capsule ( DHA) Last Menstrual Period: 08/27/24 : Yes PFSH PFSH Surgical History [place] teeth removed Family History Mother Alcoholism Depression Suicide attempt Grandmother Alcoholism Brother Oral cancer Asthma Aunt Skin cancer Grandfather Skin cancer Social History adopted: No household members: spouse number of children: 0 current occupational status: employed 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/hazards: No pets and animals: No history of recent travel: Yes ([place] - frequent) out of state: Yes out of country: No sexually active: Yes Smoking Status: Never smoker second hand exposure: Yes (employee's at work) alcohol intake: current alcohol intake frequency: holidays/special occasions only details: Not while substance use type: marijuana diet: lactose free well-balanced diet: daily or most days caffeine: Yes (V8 energy ) Type: coffee eating out: 1-3 times/week during the past year weight has: remained stable what type of physical activity do you participate in: walking and other details: gym - crossfit frequency: 3-4 times per week duration: 15-30 minutes/day ravin/roman catholic: None seatbelt use: always do you feel safe at home: Yes additional social history: : Janes Guzman History 1 Elective abortions 0 Hx Para 0 Spontaneous abortions 0 Hx # Term Pregnancies Ectopic pregnancies Hx # Pregnancies Multiple births # of living children 0 HPI *NEW* NOB LMP 08/27, LV 06/03 Details: PENNIE REDMOND is a 33 year old who presents for New OB visit. OB Visit LV Calculator Estimated Delivery Date Method Current WG Current Estimate 06/03/25 LMP (Certain) 9w 2d Other Estimates 06/06/25 Ultrasound #1 8w 6d Estimated Due Date: 06/03/25 Expected Delivery Route/Plan Labor Preferences- CB/BF classes: [] labor support person: [] labor intervention preferences: [] pain management options preferred: [] cut cord/dad catch: [] : [] PP control planned: [] discussed possible routes of delivery and associated risks: [] special requests: [] Specific Issue/Plans Covid status: [] Flu vaccine: [] Tdap vaccine: [] Rhogam: [] LARC form signed: [] Problem list reviewed and updated with the most current plan of care details and appropriate orders placed. Relevant counseling for the gestational age provided. Continue routine care and follow up unless otherwise noted in visit notes/problem list details Initial Weight: 170 lb Date -???-???-???-???-?? ?-???-???-???-???-? ??-???-???- EGA Weight BP Urine Prot -???-???-???-???-?? ?-???-???-???-???-? ??-???-???- Glucose FHR FuHt Pres Dilation -???-???-???-???-?? ?-???-???-???-???-? ??-???-???- Effaced St Visit Note 10/31/24 -???-???-???-???-?? ?-???-???-???-???-? ??-???-???- 9w 2d 170 lb 8 oz (+8 oz) 124/80 -???-???-???-???-?? ?-???-???-???-???-? ??-???-???- 173 -???-???-???-???-?? ?-???-???-???-???-? ??-???-???- KW- CRL 2.07 and cons with dates. accepts NIPT Menstrual History Last Menstrual Period: 08/27/24 Reported LMP: definite Normal amount/duration: Yes (Stopped BC in June - was on for 11 years) Frequency in days: 31 On hormonal BC at conception: No hCG+: 10/01/24 Antepartum Record Genetic Screening: Congenital Heart Defect: Other, Neural Tube Defect: Other, Hemoglobinopathy Or Carrier: Other, Cystic Fibrosis: Other, Chromosome Abnormality: Other, Drew-Sachs: Other, Hemophilia: Other, Intellectual Disability/Autism: Other, Recurrent Loss/Stillbirth: Other, Other Structural Defect: Other, Other Genetic Disease: Other and Maternal Metabolic Disorder: Other Infection History: Live with someone with TB or Exposed to TB: No, Patient or Partner has hist (more content not included)... Normal [facility] Quantitative urine opiates m easurementOrdered By: Ghazala Dee on 10-31-2024 Opiates Ql (U) Negative < 300 ng/mL [facility] Screening urine fentanyl charo surementOrdered By: Ghazala Dee on 10-31-2024 fentaNYL Screen Ql (U) Negative [facility] Urine Drug Screen (VISTA)on 10-31-2024 AMPHETAMINES Negative Normal <1000 ng/mL [facility] Comment on above: Order Comment: UNK Performed By: #### L 505.5000, M100.2200, L7000.1800 #### [facility] [address] [place], [place], [facility] BARBITIURATES Negative Normal < 200 ng/mL [facility] Comment on above: Order Comment: UNK Performed By: #### L 505.5000, M100.2200, L7000.1800 #### [facility] [address] [place], [address] BENZODIAZIPINE Negative Normal < 200 ng/mL [facility] Comment on above: Order Comment: UNK Performed By: #### L 505.5000, M100.2200, L7000.1800 #### [facility] [address] [place], [address] BUP Ur Drug Scr Negative Normal < 200 ng/mL [facility] Comment on above: Order Comment: UNK Performed By: #### L 505.5000, M100.2200, L7000.1800 #### [facility] [address] [place], [address] COCAINE Negative Normal < 300 ng/mL [facility] Comment on above: Order Comment: UNK Performed By: #### L 505.5000, M100.2200, L7000.1800 #### [facility] [address] [place], [address] Fentanyl Negative Normal [facility] Comment on above: Order Comment: UNK Performed By: #### L 505.5000, M100.2200, L7000.1800 #### [facility] [address] [place], [address] METHADONE Negative Normal < 300 ng/mL [facility] Comment on above: Order Comment: UNK Performed By: #### L 505.5000, M100.2200, L7000.1800 #### [facility] [address] [place], [address] OPIATES Negative Normal < 300 ng/mL [facility] Comment on above: Order Comment: UNK Performed By: #### L 505.5000, M100.2200, L7000.1800 #### [facility] [address] [place], [address] OXYCODONE Negative Normal < 100 ng/mL [facility] Comment on above: Order Comment: UNK Performed By: #### L 505.5000, M100.2200, L7000.1800 #### [facility] [address] [place], [address] PCP Negative Normal < 25 ng/mL [facility] Comment on above: Order Comment: UNK Performed By: #### L 505.5000, M100.2200, L7000.1800 #### [facility] [address] [place], [address] THC Negative Normal < 50 ng/mL [facility] Comment on above: Order Comment: UNK Performed By: #### L 505.5000, M100.2200, L7000.1800 #### [facility] [address] [place], [address] Urine benzodiazepine levelOr dered By: Ghazala Dee on 10-31-2024 Benzodiazepines Ql (U) Negative < 200 ng/mL [facility] Urine cocaine levelOrdered B y: Ghazala Dee on 10-31-2024 Cocaine Ql (U) Negative < 300 ng/mL [facility] Urine cultureOrdered By: César Dee on 10-31-2024 Bacteria identified Cx Nom (U) Positive Abnormal [facility] Urine [id number]-0-xziidnirzeovrp abinol (THC) measurementOrdered By: Ghazala Dee on 10-31-2024 Cannabinoids Screen Ql (U) Negative < 50 ng/mL [facility] Urine phencyclidine (PCP) de tectionOrdered By: Ghazala Dee on 10-31-2024 Phencyclidine Ql (U) Negative < 25 ng/mL [facility] - Chemistry and C hemistry - challengeOrdered By: Shagufta Berumen on 10-18-2024 HCG ( test) Ql (U) Positive [facility] Office Visit Reporton 2024 Office Visit Report [facility] [address] [place], [place] [address], [place] [address] OFFICE VISIT Date of Service: 10/18/24 MR#: [id number] Acct: [id number] Patient: PENNIE REDMOND Rep #: [id number] : 1990 Provider: Dr. Shagufta mott MD Age/Sex: 33/F Location: [facility] Status: Signed Intake Vital Signs 10/18/24 09:06 Height 5 ft 9 in Weight: 170 lb BMI 25.1 BP 110/60 Intake Visit Reasons: PNOB Confirm , Vitals Chief Complaint: In person PNOB Is patient in pain?: No Allergies No Known Allergies Allergy (Unverified 10/18/24 08:23) Medications ???Medication ???Instructions ???Recorded ???Confirmed ???Type docosahexaenoic acid 200 mg mg PO 10/18/24 10/18/24 History capsule ( DHA) Is last menstrual period known: Yes Post menopausal: No Patient : Yes Nurse's Note: Pt here for secondary amenorrhea. Office UPT: positive. Vitals WNL. PNOB questions completed. Problem list, allergies, and medications updated. First trimester ACOG education completed. Results POC Urine Office , Urine Positive Last Edit by Cassie Garcia RN on 10/18/24 09:07 Assessment and Plan Assessment and Plan (1) Marijuana use: Status: Acute Comment: Stopped; Last gummy 09/28. Random tox screen ordered (2) Supervision of high-risk : Status: Acute Comment: , LV 06/03, : Janes (3) : Status: Acute Comment: Discussed genetic/carrier testing - desires genetic w/gender, undecided on carrier (4) Oral herpes: Status: Acute (5) ADHD: Status: Acute Comment: Stopped Adderall 10/01 (was on 5mg) Orders: Orders CBC W/Diff, Automated Today Ghazala Dee CNM O09.90 - Supervision of high risk , unspecified, unspecified trimester Type Screen Today Ghazala Dee CNM O09.90 - Supervision of high risk , unspecified, unspecified trimester Rubella IgG Today Ghazala Dee CNM O09.90 - Supervision of high risk , unspecified, unspecified trimester Hepatitis C Antibody Today Ghazala Dee CNM O09.90 - Supervision of high risk , unspecified, unspecified trimester Hepatitis B Surface Antigen Today Ghazala Dee CNM O09.90 - Supervision of high risk , unspecified, unspecified trimester Culture, Urine Today Ghazala Dee CNM O09.90 - Supervision of high risk , unspecified, unspecified trimester Syphilis Antibodies Today Ghazala Dee CNM O09.90 - Supervision of high risk , unspecified, unspecified trimester Chlamydia/GC JILLIAN aptima Today Ghazala Dee CNM O09.90 - Supervision of high risk , unspecified, unspecified trimester HIV Today Ghazala Dee CNM O09.90 - Supervision of high risk , unspecified, unspecified trimester Urine Drug Screen Today Ghazala Dee CNM F12.90 - Cannabis use, unspecified, uncomplicated, O09.90 - Supervision of high risk , unspecified, unspecified trimester TETE Today Ghazala Dee CNM O09.90 - Supervision of high risk , unspecified, unspecified trimester POC Urine Today Dr. Shagufta Berumen MD N91.1 - Secondary amenorrhea 10/18/24 1536 Date Shagufta Harris Signature: Date (if applicable) CC: Normal [facility] No Panel Informationon 07-18 Pap Human Papillomavirus Comment Negative [facility] 36on 06-22-2023 36 Patient submitted online appointment request, lm to c/b. Unsure of department or service requested. Please assist if patient calls back. FirstName : Pennie LastName : Nyla Pronouns : PronounsOther : Email : [email or web address] Phone : [phone] Birthdate : 1990 12:00:00 AM BestTimeToCallBack : Morning AppointmentDate : Soonest available PhysicianRequested : Symptoms : OptIn : False Normal [facility] OBSOLETEon 02-19-2021 OBSOLETE Refill ([id number]) ---- PENNIE REDMOND ([id number]) 1990 F Date Time Provider Department 02/19/21 NORMAN CERVANTES [id number] During your visit today, we recorded the following information about you: Norman Cervantes PA-C 02/19/2021 8:36 AM Signed Pt is due for annual next month; please call to schedule. CHARLIE Monzon 03/09/2021 10:07 AM Signed Left message to return call to office. Charleen Escobar Allergies As of Date: 02/19/2021 (No Known Allergies) Date Reviewed: 03/11/2020 Reviewed by: Norman Cervantes - Fully Assessed Reason for Visit: Refill Request [94] Visit Diagnosis:Encounter for surveillance of contraceptive pills [Z30.41] Order(s):Drospireno ne-Ethinyl Estradiol (JON 28) 3-0.02 mg per tabletTAKE ONE TABLET BY MOUTH ONCE DAILYDisp: 84 tabletRfl: 0 Prescriptions as of 03/09/2021 - Drospirenone-Ethiny l Estradiol (JON 28) 3-0.02 mg per tablet TAKE ONE TABLET BY MOUTH ONCE DAILY Problem List As Of Date: 02/19/2021 (None) Prescriptions ordered this encounter Disp Refills Start End DROSPIRENONE 3 MG-ETHINYL ESTRADIOL * 84 t* 0 02/19/2021 Sig: TAKE ONE TABLET BY MOUTH ONCE DAILY Medications Discontinued During This Encounter Prescriptions - Drospirenone-Ethiny l Estradiol (JON 28) 3-0.02 mg per tablet (Discontinued) Take 1 tablet by mouth once daily. Encounter Status:Closed by CHARLEEN ESCOBAR on 03/09/21 [facility] Vital Signs Date Time Vital Sign Value Performing Clinician Valeriei zan 01-16-2025 14:03-0400 Body height 175.[address] Janes Tate MD Work Phone: 1(699)377-894686 [address] 01-16-2025 14:03-0400 Body mass index (BMI) [Ratio] 26.6 kg/m2 Dr. Janes Tate MD Work Phone: 5(912)623-735655 [place] [address] 01-16-2025 14:03-0400 Body weight 81.[address] Janes Tate MD Work Phone: 9(080)881-439355 [place] [address] 01-16-2025 14:03-0400 Diastolic blood pressure 78 mm[Hg] Dr. Janes Tate MD Work Phone: 0(188)127-166655 [place] [address] 01-16-2025 14:03-0400 Systolic blood pressure 114 mm[Hg] Dr. Janes Tate MD Work Phone: [facility] 12-26-2024 14:34-0400 Body height 175.[address] Janes Tate MD Work Phone: [facility] 12-26-2024 14:34-0400 Body mass index (BMI) [Ratio] 26.2 kg/m2 Dr. Janes Tate MD Work Phone: 9(250)949-871941 [place] [address] 12-26-2024 14:34-0400 Body weight 80.[address] Janes Tate MD Work Phone: 8(901)368-529041 [place] [address] 12-26-2024 14:34-0400 Diastolic blood pressure 79 mm[Hg] Dr. Janes Tate MD Work Phone: 9(488)893-158341 [place] [address] 12-26-2024 14:34-0400 Systolic blood pressure 118 mm[Hg] Dr. Janes Tate MD Work Phone: 8(376)432-255541 [place] [address] 11-29-2024 08:49-0400 Body height 175.[address] Janes Tate MD Work Phone: 6(090)577-002841 [place] [address] 11-29-2024 08:49-0400 Body mass index (BMI) [Ratio] 25.7 kg/m2 Dr. Janes Tate MD Work Phone: 3(103)362-995441 [place] [address] 11-29-2024 08:49-0400 Body weight 79.[address] Janes Tate MD Work Phone: 0(284)148-233841 [place] [address] 11-29-2024 08:49-0400 Diastolic blood pressure 65 mm[Hg] Dr. Janes Tate MD Work Phone: 4(473)119-396941 [place] [address] 11-29-2024 08:49-0400 Systolic blood pressure 114 mm[Hg] Dr. Janes Tate MD Work Phone: 8(234)077-418341 [place] [address] 10-31-2024 12:57-0400 Body height 175.[address] Janes Tate MD Work Phone: 3(739)281-080241 [place] [address] 10-31-2024 12:57-0400 Body mass index (BMI) [Ratio] 25.2 kg/m2 Dr. Janes Tate MD Work Phone: 2(363)919-683941 [place] [address] 10-31-2024 12:57-0400 Body weight 77.[address] Janes Tate MD Work Phone: 3(306)955-074041 [place] [address] 10-31-2024 12:57-0400 Diastolic blood pressure 80 mm[Hg] Dr. Janes Tate MD Work Phone: [facility] 10-31-2024 12:57-0400 Systolic blood pressure 124 mm[Hg] Dr. Janes Tate MD Work Phone: [facility] 10-18-2024 09:06-0400 Body mass index (BMI) [Ratio] 25.1 kg/m2 Dr. Janes Tate MD Work Phone: [facility] 10-18-2024 09:06-0400 Body weight 77.[address] Janes Tate MD Work Phone: [facility] 10-18-2024 09:06-0400 Diastolic blood pressure 60 mm[Hg] Dr. Janes Tate MD Work Phone: [facility] 10-18-2024 09:06-0400 Systolic blood pressure 110 mm[Hg] Dr. Janes Tate MD Work Phone: [facility] 07-19-2023 09:05-0400 Body height 172.7 cm Norman Cervantes PA-C Work Phone: [facility] 07-19-2023 09:05-0400 Body weight 77.11 kg Norman Cervantes PA-C Work Phone: [facility] 07-19-2023 09:05-0400 Diastolic blood pressure 76 mm[Hg] Norman Cervantes PA-C Work Phone: [facility] 07-19-2023 09:05-0400 Systolic blood pressure 124 mm[Hg] Norman Cervantes PA-C Work Phone: [facility] 07-13-2022 09:19-0400 Body height 172.7 cm Norman Cervantes PA-C Work Phone: [facility] 07-13-2022 09:19-0400 Body weight 82.1 kg Norman Cervantes PA-C Work Phone: [facility] 07-13-2022 09:19-0400 Diastolic blood pressure 72 mm[Hg] Norman Cervantes PA-C Work Phone: [facility] 07-13-2022 09:19-0400 Systolic blood pressure 136 mm[Hg] Norman Cervantes PA-C Work Phone: [facility] Encounters Encounter Date Encounter Type Care Provider Facility Start: 02-10-2025 End: 02-10-2025 ambulatory Janes Tate Facility:[facility] Start: 01-16-2025 End: 01-16-2025 Patient encounter procedure Trista OTERO -[facility] Work Phone: Start: 01-16-2025 End: 01-16-[address] Janes Tate MD Work Phone: -[facility] Start: 01-07-2025 End: 01-07-2025 ambulatory [facility] Start: 12-26-2024 End: 12-26-[address] Emilie Riggs DO -[facility] Work Phone: Start: 12-26-2024 End: 12-26-[address] Janes Tate MD Work Phone: -[facility] Start: 11-29-2024 End: 11-29-[address] Shagufta Berumen MD -[facility] Work Phone: Start: 11-29-2024 End: 11-29-[address] Janes Tate MD Work Phone: -[facility] Start: 11-11-2024 End: 11-11-[address] Janes Tate MD Work Phone: -[facility] Start: 11-11-2024 End: 11-11-2024 Patient encounter procedure Ghazala Dee [facility] -Lab [facility] Start: 11-11-2024 End: 11-11-2024 ambulatory Ghazala Dee Facility:[facility] Start: 10-31-2024 End: 10-31-[address] Janes Tate MD Work Phone: -Laboratory Specimen Start: 10-31-2024 End: 10-31-2024 Patient encounter procedure Ghazala Dee CN -Laboratory Specimen Work Phone: Start: 10-31-2024 End: 10-31-2024 Patient encounter procedure Ghazala Dee CNM -[facility] Work Phone: Start: 10-31-2024 End: 10-31-[address] Janes Tate MD Work Phone: -[facility] Start: 10-31-2024 End: 10-31-2024 ambulatory Ghazala Dee Facility:[facility] Start: 10-18-2024 End: 10-18-[address] Shagufta Berumen MD -[facility] Work Phone: Start: 10-18-2024 End: 10-18-[address] Janes Tate MD Work Phone: -[facility] Start: 08-12-2024 End: 08-12-2024 Refill Norman Cervantes PA-C Work Phone: [employer] [facility] Comment on above: Refill Request Start: 07-18-2024 ambulatory Janes Tate Facility:[facility] Start: 07-18-2024 Non-patient / Non-visit Dr. Janes Preston MD -[facility] Work Phone: Start: 07-19-2023 End: 07-19-2023 Patient encounter procedure Norman Cervantes PA-C Work Phone: [employer] [facility] Comment on above: Women's annual routi ne gynecological examination (Primary Dx); Screening for malignant neoplasm of cervix; Encounter for surveillance of contraceptive pills; Vaginal discharge; Other problems related to lifestyle; Irregular bleeding Start: 06-22-2023 Telephone encounter Ti reina MD Work Phone: [facility] Comment on above: Appointment Request Start: 07-13-2022 End: 07-13-2022 Patient encounter procedure Normanhilda JohnsonCeciliajillian Cervantes PA-C Work Phone: [employer] [facility] [employer] Comment on above: Women's annual routi ne gynecological examination (Primary Dx); Screening for malignant neoplasm of cervix; Encounter for surveillance of contraceptive pills; Irregular bleeding Start: 05-27-2022 Refill Norman Bray yuri Cervantes PA-C Work Phone: [employer] [facility] Comment on above: Refill Request Procedures Date Procedure Procedure Detail Performing Clinician Start: 11-11-2024 Hepatitis C antibody measurement Dr. Janes Tate MD Work Phone: Comment on above: Reactive: Presumptiv e evidence of antibodies to HCV. Follow CDC recommendations for supplemental testing.Non-Reactive: Antibodies to HCV were not detected; does not exclude the possibility of exposure to HCVReactive Results are presumptive evidence of antibodies to HCV. Follow CDC recommendations for supplemental testing.Order confirmation testing: HCV Quant by PCR testing - HCVPCR #[id number] Non Reactive: < 0.8 Equivocal: >/= 0.8 to < 1.0 Reactive: >/= 1.0The CDC requires that a reactive/equivocal HCV antibody result be sent out for confirmation. HCV Quant by PCR testing. Start: 11-11-[address] Janes Tate MD Work Phone: Start: 11-11-[address] Janes Tate MD Work Phone: Comment on above: Antibody Result: Int erpretationNon-Reactive: Non- ImmuneReactive: ImmuneThe following results were obtained with the [employer] Rubella IgG assay. Results from assays of other manufacturers cannot be used interchangeably. Start: 11-11-2024 Serologic test for syphilis Dr. Janes Tate MD Work Phone: Start: 10-31-2024 Methadone measurement, urine Dr. Janes Tate MD Work Phone: Start: 10-31-[address] Janes Tate MD Work Phone: Plan of Treatment Date Care Activity Detail Author Start: 07-18-2028 Screening for malignant neoplasm of cervix Cervical Cancer Screening [facility] Start: 07-14-2027 Screening for malignant neoplasm of cervix Pap Testing [facility] Start: 12-09-2024 Influenza vaccination Influenza Vaccine (Season Ended) [facility] Start: 05-19-2024 PAP TESTING PAP TESTING [facility] Start: 12-10-2023 Covid-19 Vaccine ( season) Covid-19 Vaccine ( season) [facility] Start: 12-10-2023 Influenza vaccination Influenza Vaccine (Season Ended) [facility] Start: 07-19-2023 End: 10-18-2023 CHLAMYDIA/N.GONORRHOEAE,T .VAGINALIS,RNA,QL,TMA,PAP VIAL CHLAMYDIA/N.GONORRHOEAE, T.VAGINALIS,RNA,QL,TMA,P AP VIAL Lab Routine Vaginal discharge Other problems related to lifestyle Expected: 07/19/2023, Expires: 10/18/2023 [employer] Phone: Comment on above: Expected: 07/19/2023, Expires: Start: 07-19-2023 End: 10-18-2023 Hepatitis B virus surface Ag [Presence] in Serum HEP B SURF AG CONFRM Lab Routine Vaginal discharge Other problems related to lifestyle Expected: 07/19/2023, Expires: 10/18/2023 [employer] Phone: Comment on above: Expected: 07/19/2023, Expires: Start: 07-19-2023 End: 10-18-2023 Hepatitis C virus Ab [Presence] in Serum HEPATITIS C ANTIBODY IA WITH CONFIRMATION Lab Routine Vaginal discharge Other problems related to lifestyle Expected: 07/19/2023, Expires: 10/18/2023 [employer] Phone: Comment on above: Expected: 07/19/2023, Expires: Start: 07-19-2023 End: 10-18-2023 HERPES SIMPLEX TYPE 1 AND 2 IG HERPES SIMPLEX TYPE 1 AND 2 IG Lab Routine Vaginal discharge Other problems related to lifestyle Expected: 07/19/2023, Expires: 10/18/2023 [employer] Phone: Comment on above: Expected: 07/19/2023, Expires: Start: 07-19-2023 End: 10-18-2023 HIV 1+2 Ab [Presence] in Serum or Plasma by Immunoassay HIV 1/2 COMBO WITH REFLEX TO DIFFERENTIATION Lab Routine Vaginal discharge Other problems related to lifestyle Expected: 07/19/2023, Expires: 10/18/2023 [employer] Phone: Comment on above: Expected: 07/19/2023, Expires: Start: 07-19-2023 End: 10-18-2023 SYPHILIS ANTIBODY CASCADING REFLEX SYPHILIS ANTIBODY CASCADING REFLEX Lab Routine Vaginal discharge Other problems related to lifestyle Expected: 07/19/2023, Expires: 10/18/2023 [employer] Phone: Comment on above: Expected: 07/19/2023, Expires: Start: 04-10-2023 Behavioral Health Screening Behavioral Health Screening [facility] Start: 12-09-2022 Covid-19 Vaccine ( season) Covid-19 Vaccine ( season) [facility] Start: 12-09-2022 Influenza vaccination INFLUENZA (Season Ended) [facility] Start: 2022 Screening for malignant neoplasm of cervix HPV Testing [facility] Start: 04-10-2022 DEPRESSION ASSESSMENT DEPRESSION ASSESSMENT [facility] Start: 12-09-2021 Influenza vaccination INFLUENZA (#1) [facility] Start: 11-16-2011 Hepatitis B Vaccine (1 of 3 - 19+ 3-dose series) Hepatitis B Vaccine (1 of 3 - 19+ 3-dose series) [facility] Start: 11-16-2011 Urine microalbumin profile [facility] Start: 2010 Anxiety Screening Anxiety Screening [facility] Start: 2010 Depression Screening Depression Screening [facility] Start: 2010 HEPATITIS C SCREENING HEPATITIS C SCREENING [facility] Start: 2010 Hepatitis C screening Hepatitis C Screening [facility] Start: 2010 HIV SCREENING HIV SCREENING [facility] Start: 2010 HIV screening HIV Screening [facility] Start: 05-18-1993 COVID-19 VACCINE (#1) COVID-19 VACCINE (#1) [facility] Start: 1992 HEPATITIS B (1 of 3 - 3-dose series) HEPATITIS B (1 of 3 - 3-dose series) [facility] CBC W Auto Different ial panel - Blood [facility] Chlamydia deoxyribonucleic acid detection [facility] Drugs identified in Urine by Screen method [facility] Hepatitis C antibody measurement [facility] PAP REFLEX HPV MRNA WHEN ASCUS PAP REFLEX HPV MRNA WHEN ASCUS Lab Routine Women's annual routine gynecological examination Screening for malignant neoplasm of cervix Ordered: 07/13/2022 [employer] Phone: Comment on above: Ordered: 07/13/2022 PAP/HPV MRNA E6/E7 R FX HPV 16,18/45 PAP/HPV MRNA E6/E7 RFX HPV 16,18/45 Lab Routine Screening for malignant neoplasm of cervix Ordered: 07/19/2023 [employer] Phone: Comment on above: Ordered: 07/19/2023 Procedure [facility] Rubella IgG measurement [facility] Serologic test for syphilis [facility] Payers Date Payer Category Payer Unknown [id number] 2024 Self-pay 1990 Unknown [id number] Unknown [id number] Unknown [id number] 2.16.8 [id number] Unknown [id number] 2.16.8 [id number] Unknown [id number] 2.16.8 [id number] Unknown [id number] 2.16.8 [id number] Unknown [id number] 2.16.8 [id number] Unknown [id number] 2.16.8 [id number] Unknown [id number] 2.16.8 [id number] Unknown [id number] 2.16.8 [id number] Social History Date Type Detail Facility Start: 07-03-2018 End: 10-18-2024 Tobacco smoking status NHIS Never smoked tobacco [facility] Start: 07-03-2018 End: 07-19-2023 Tobacco use and exposure Smokeless tobacco non-user [facility] Start: 05-19-2021 End: 07-19-2023 Alcohol intake Current drinker of alcohol (finding) [facility] Start: 1990 Sex Assigned At Not on file [facility] Tobacco smoking stat [facility] Tobacco smoking consumption unknown [facility] Start: 07-19-2023 Gender identity Not on file [facility] Work Phone: Start: 07-19-2023 History of Social function [facility] Work Phone: Adult Depression Screening Assessment 0 [facility] Work Phone: Start: 1990 Sex Assigned At Female [facility] Clinical Notes 05-19-2021 to 01-16-2025 Note Date & Type Note Facility 01-16-2025 Progress note [facility] 01-16-2025 Progress note Note Date/Time January 16, 2025 2:17pm [facility] [address] [place] [address], [address] [place] [address] OFFICE VISIT Date of Service: 01/16/25 MR#: [id number] Acct: [id number] Name: PENNIE NOLAND Rep #: [id number] : 1990 Provider: BRANDEN Steward Age/Sex: 34/F Location: 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: No Is patient in pain?: No Allergies No Known Allergies Allergy (Unverified 01/16/25 14:03) Medications ?Medication ?Instructions ?Recorded ?Confirmed ?Type docosahexaenoic acid 200 mg mg PO 10/18/24 01/16/25 Hi story capsule ( DHA) breast pump #1 ea 01/16/25 01/16/25 Rx Last Menstrual Period: 08/27/24 Zika: Zika virus screening: Negative : No PFSH PFSH Medical History ADHD Oral herpes Surgical History [place] teeth removed Family History Mother Alcoholism Depression Suicide attempt Grandmother Alcoholism Brother Oral cancer Asthma Aunt Skin cancer Grandfather Skin cancer Social History adopted: No household members: spouse number of children: 0 current occupational status: employed 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[employer]) current occupational exposures/hazards: No pets and animals: No history of recent travel: Yes ([place] - frequent) out of state: Yes out of country:No sexually active: Yes Smoking Status: Never smoker second hand exposure: Yes (employee's at work) alcohol intake: current alcohol intake frequency: holidays/special occasions only details: Not while substance use type: marijuana diet: lactose free well-balanced diet: daily or most days caffeine: Yes (V8 energy ) Type: coffee eating out: 1-3 times/week during the past year weight has: remained stable what type of physical activity do you participate in: walking and other details: gym - crossfit frequency: 3-4 times per week duration: 15-30 minutes/day ravin/roman catholic: None seatbelt use: always do you feel safe at home: Yes additional social history: : Janes Guzman History 1 Elective abortions 0 Hx Para 0 Spontaneous abortions 0 Hx # Term Pregnancies Ectopic pregnancies Hx # Pregnancies Multiple births # of living children 0 HPI 20wk2d ob Details: PENNIE NOLAND is a 34 year old who presents for routine OB visit. OB Visit LV Calculator Estimated Delivery Date Method Current WG Current Estimate 06/03/25 LMP (Certain) 20w 2d Other Estimates 06/06/25 Ultrasound #1 19w 6d Expected Delivery Route/Plan Labor Preferences- CB/BF classes: [] labor support person: [] labor intervention preferences: [] pain management options preferred: [] cut cord/dad catch: [] : [] PP control planned: [] discussed possible routes of delivery and associated risks: [] special requests: [] Specific Issue/Plans Covid status: [] Flu vaccine: [] Tdap vaccine: [] Rhogam: [] LARC form signed: [] Problem list reviewed and updated with the most current plan of care details and appropriate orders placed. Relevant counseling for the gestational age provided. Continue routine care and follow up unless otherwise noted in visit notes/problem list details Initial Weight: 170 lb Date -?-?-?-?-?-?-?-?-?-?-?-?- EGA Weight BP Urine Prot -?-?-?-?-?-?-?-?-?-?-?-?- Glucose FHR FuHt Pres Dilation -?-?-?-?-?-?-?-?-?-?-?-?- Effaced St Visit Note 10/31/24 -?-?-?-?-?-?-?-?-?-?-?-?- 9w 2d 170 lb 8 oz (+8 oz) 124/80 -?-?-?-?-?-?-?-?-?-?-?-?- 173 -?-?-?-?-?-?-?-?-?-?-?-?- KW- CRL 2.07 and cons with dates. accepts NIPT 11/29/24 -?-?-?-?-?-?-?-?-?-?-?-?- 13w 3d 174 lb 4 oz (+4 lb 4 oz) 114/65 Negative -?-?-?-?-?-?-?-?-?-?-?-?- Negative 150 -?-?-?-?-?-?-?-?-?-?-?-?- SM- no vb crampi ng 12/26/24 -?-?-?-?-?-?-?-?-?-?-?-?- 17w 2d 177 lb 9 oz (+7 lb 9 oz) 118/79 Negative -?-?-?-?-?-?-?-?-?-?-?-?- Negative 147 -?-?-?-?-?-?-?-?-?-?-?-?- JV- feeling some fluttering and has some numbness on the right. going to [place] for a 'baby long[place] 01/16/25 -?-?-?-?-?-?-?-?-?-?-?-?- 20w 2d 180 lb 4 oz (+10 lb 4 oz) 114/78 Negative -?-?-?-?-?-?-?-?-?-?-?-?- Negative 150 -?-?-?-?-?-?-?-?-?-?-?-?- MH-No VB. Alfonso Freed Reviewed pelvic rest instructions ACOG First Trimester First Trimester: Desire for , Alcohol, Tobacco Cessation, Illicit/Recreational Drug/Substance Use, Intimate Partner Violence, Barriers to care, Unstable Housing, Communication Barriers, Environmental/Work Hazards, Anticipated Course of Care, Toxoplasmosis Precations, Use of Any medications, Sexual activity, Exercise, Dental Care, Sauna/Hot tub use, Seat Belt use, Childbirth classes/Hospital facilities, Travel, Indications for Ultrasound and Screening for Aneuploidy; Discussed Second Trimester Second Trimester: Signs and Symptoms of Labor, Selecting a care provider, Reproductive Life Planning & Contreception, Care Planning, Depression/Anxiety and Intimate Partner Violence; Discussed Tobacco Cessation Third Trimester Third Trimester: Pain Management Plans, Labor support person(s), Immediate Larc, Signs and Symptoms of Preeclampsia, Feeding No , Education and Family Medical Leave or Disability Forms ROS Const Reports system reviewed and no additional complaints, except as documented GI Denies abdominal pain, Denies nausea and Denies vomiting Exam Const General: cooperative Nutritional Appearance: well nourished GI Palpation: soft, nontender and other (gravid) Results POC Urinalysis 2 Dip (Clinic) Office Urine Glucose Negative Last Edit by Florinda Hoffman on 01/16/25 14 :03 Office Urine Protein Negative Last Edit by Florinda Hoffman on 01/16/25 14 :03 Coding Level of Care Code OB Routine Diagnoses Supervision of high risk in second trimester O09.92 Trimester: second trimester 20 weeks gestation of Z3A.20 Weeks of gestation: 20 weeks Marijuana use F12.90 Low lying placenta nos or without hemorrhage, second trimester O44.42 Assessment and Plan Assessment and Plan (1) Supervision of high-risk : Status: Acute Qualifiers: Trimester: second trimester Qualified Code(s): O09.92 - Supervision of high risk , unspecified, second trimester Comment: PRR, , girl LV 06/03, : Janes (2) : Status: Acute Qualifiers: Weeks of gestation: 20 weeks Qualified Code(s): Z3A.20 - 20 weeks gestation of Comment: NIPT low risk girl, Carrier neg. (3) Marijuana use: Status: Acute Comment: Stopped; Last gummy 09/28. Random tox screen ordered (4) Low lying placenta nos or without hemorrhage, second trimester: Status: Acute Comment: <1cm from os. Pelvic rest. Rpt US MFM 28 wk Orders: Orders POC Urinalysis 2 Dip (Clinic) Today Medications: New breast pump As directed 1 ea 0RF Plan problem list reviewed and updated for most current plan of care and appropriate orders placed. Relevant counseling for the gestational age appropriate provided and ACOG education checklist updated. Continue routine care and follow up. 01/16/25 1420 <Electronically signed by Trista michaels NP CASH APPLICATION CLERK-C> Date _ Trista Steward NP CASH APPLICATION CLERK-C Cosigner Signature: Date (if applicable) CC: ~ [facility] Work Phone: 1(169) 989-573909-18-2025 [facility] [address], [address] [place] [address] OFFICE VISIT Date of Service: 12/26/24 MR#: [id number] Acct: [id number] Name: PENNIE NOLAND Rep #: [id number] : 1990 Provider: Dr. Alisa Riggs DO Age/Sex: 34/F Location: [facility] Status: Signed Intake Vital Signs 10/31/24 12:57 11/29/24 08:49 12/26/24 14:34 Height 5 ft 9 in 5 ft 9 in 5 ft 9 in Weight: 177 lb 9 oz BMI 26.2 BP 118/79 Intake Visit Reasons: 17 wk ob Chief Complaint: 17 Week OB Traffic Control Operator Required: No Is patient in pain?: No Allergies No Known Allergies Allergy (Unverified 12/26/24 14:34) Medications ?Medication ?Instructions ?Recorded ?Confirmed ?Type docosahexaenoic acid 200 mg mg PO 10/18/24 12/26/24 Hi story capsule ( DHA) Last Menstrual Period: 08/27/24 Zika: Zika virus screening: Negative : No PFSH PFSH Medical History ADHD Oral herpes Surgical History [place] teeth removed Family History Mother Alcoholism Depression Suicide attempt Grandmother Alcoholism Brother Oral cancer Asthma Aunt Skin cancer Grandfather Skin cancer Social History adopted: No household members: spouse number of children: 0 current occupational status: employed 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) current occupational exposures/hazards: No pets and animals: No history of recent travel: Yes ([place] - frequent) out of state: Yes out of country:No sexually active: Yes Smoking Status: Never smoker second hand exposure: Yes (employee's at work) alcohol intake: current alcohol intake frequency: holidays/special occasions only details: Not while substance use type: marijuana diet: lactose free well-balanced diet: daily or most days caffeine: Yes (V8 energy ) Type: coffee eating out: 1-3 times/week during the past year weight has: remained stable what type of physical activity do you participate in: walking and other details: gym - crossfit frequency: 3-4 times per week duration: 15-30 minutes/day ravin/roman catholic: None seatbelt use: always do you feel safe at home: Yes additional social history: : Janes Guzman History 1 Elective abortions 0 Hx Para 0 Spontaneous abortions 0 Hx # Term Pregnancies Ectopic pregnancies Hx # Pregnancies Multiple births # of living children 0 HPI 17 wk ob Details: PENNIE REDMOND is a 34 year old who presents for routine OB visit. OB Visit LV Calculator Estimated Delivery Date Method Current WG Current Estimate 06/03/25 LMP (Certain) 17w 2d Other Estimates 06/06/25 Ultrasound #1 16w 6d Expected Delivery Route/Plan Labor Preferences- CB/BF classes: [] labor support person: [] labor intervention preferences: [] pain management options preferred: [] cut cord/dad catch: [] : [] PP control planned: [] discussed possible routes of delivery and associated risks: [] special requests: [] Specific Issue/Plans Covid status: [] Flu vaccine: [] Tdap vaccine: [] Rhogam: [] LARC form signed: [] Problem list reviewed and updated with the most current plan of care details and appropriate ordersplaced. Relevant counseling for the gestational age provided. Continue routine care and follow up unless otherwise noted in visit notes/problem list details Initial Weight: 170 lb Date -?-?-?-?-?-?-?-?-?-?-?-?- EGA Weight BP Urine Prot -?-?-?-?-?-?-?-?-?-?-?-?- Glucose FHR FuHt Pres Dilation -?-?-?-?-?-?-?-?-?-?-?-?- Effaced St Visit Note 10/31/24 -?-?-?-?-?-?-?-?-?-?-?-?- 9w 2d 170 lb 8 oz (+8 oz) 124/80 -?-?-?-?-?-?-?-?-?-?-?-?- 173 -?-?-?-?-?-?-?-?-?-?-?-?- KW- CRL 2.07 and cons with dates. accepts NIPT 11/29/24 -?-?-?-?-?-?-?-?-?-?-?-?- 13w 3d 174 lb 4 oz (+4 lb 4 oz) 114/65 Negative -?-?-?-?-?-?-?-?-?-?-?-?- Negative 150 -?-?-?-?-?-?-?-?-?-?-?-?- SM- no vb crampi ng 12/26/24 -?-?--?-?-?-?-?-?-?-?-?-?- 17w 2d 177 lb 9 oz (+7 lb 9 oz) 118/79 Negative -?-?-?-?-?-?-?-?-?-?-?-?- Negative 147 -?-?-?-?-?-?-?-?-?-?-?-?- JV- feeling some fluttering and has some numbness on the right. going to [place] for a 'baby longoria ACOG First Trimester First Trimester: Desire for , Alcohol, Tobacco Cessation, Illicit/Recreational Drug/Substance Use, Intimate Partner Violence, Barriers to care, Unstable Housing, Communication Barriers, Environmental/Work Hazards, Anticipated Course of Care, Toxoplasmosis Precations, Use of Any med ications, Sexual activity, Exercise, Dental Care, Sauna/Hot tub use, Seat Belt use, Childbirth classes/Hospital facilities, Travel, Indications for Ultrasound and Screening for Aneuploidy; Discussed Second Trimester Second Trimester: Signs and Symptoms of Labor, Selecting a care provider, Reproductive Life Planning & Contreception, Care Planning, Depression/Anxiety and Intimate Partner Violence; Discussed Tobacco Cessation Third Trimester Third Trimester: Pain Management Plans, Labor support person(s), Immediate Larc, Signs and Symptoms of Preeclampsia, Infant Feeding No , [place] Education and Family Medical Leave or Disability Forms Results POC Urinalysis 2 Dip (Clinic) Office Urine Glucose Negative Last Edit by Florinda Hoffman on 12/26/24 14 :40 Office Urine Protein Negative Last Edit by Florinda Hoffman on 12/26/24 14 :40 Coding Level of Care Code OB Routine Diagnoses 17 weeks gestation of Z3A.17 Weeks of gestation: 17 weeks Supervision of high-risk O09.90 Marijuana use F12.90 Assessment and Plan Assessment and Plan (1) : Status: Acute Qualifiers: Weeks of gestation: 17 weeks Qualified Code(s): Z3A.17 - 17 weeks gestation of Comment: NIPT low risk girl, Carrier neg. (2) Supervision of high-risk : Status: Acute Comment: PRR, , girl LV 06/03, : Janes (3) Marijuana use: Status: Acute Comment: Stopped; Last gummy 09/28. Random tox screen ordered Orders: Orders POC Urinalysis 2 Dip (Clinic) Today 12/26/24 1449 e Jeovanny DO> Date _ Emilie Riggs DO Cosign Signature: Date (if applicable) CC: ~ [facility] [id number] Progress note Author Emilie Up [facility] Note Date/Time December 26, 2024 2:49pm [facility] [address] [place] [address], [address] [place] [address] OFFICE VISIT Date of Service: 12/26/24 MR#: [id number] Acct: [id number] Name: PENNIE NOLAND Rep #: [id number] : 1990 Provider: Dr. Alisa Riggs DO Age/Sex: 34/F Location: [facility] Status: Signed Intake Vital Signs 10/31/24 12:57 11/29/24 08:49 12/26/24 14:34 Height 5 ft 9 in 5 ft 9 in 5 ft 9 in Weight: 177 lb 9 oz BMI 26.2 BP 118/79 Intake Visit Reasons: 17 wk ob Chief Complaint: 17 Week OB Traffic Control Operator Required: No Is patient in pain?: No Allergies No Known Allergies Allergy (Unverified 12/26/24 14:34) Medications ?Medication ?Instructions ?Recorded ?Confirmed ?Type docosahexaenoic acid 200 mg mg PO 10/18/24 12/26/24 Hi story capsule ( DHA) Last Menstrual Period: 08/27/24 Zika: Zika virus screening: Negative : No PFSH PFSH Medical History ADHD Oral herpes Surgical History [place] teeth removed Family History Mother Alcoholism Depression Suicide attempt Grandmother Alcoholism Brother Oral cancer Asthma Aunt Skin cancer Grandfather Skin cancer Social History adopted: No household members: spouse number of children: 0 current occupational status: employed 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[employer]) current occupational 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/hazards: No pets and animals: No history of recent travel: Yes ([place] - frequent) out of state: Yes out of country:No sexually active: Yes Smoking Status: Never smoker second hand exposure: Yes (employee's at work) alcohol intake: current alcohol intake frequency: holidays/special occasions only details: Not while substance use type: marijuana diet: lactose free well-balanced diet: daily or most days caffeine: Yes (V8 energy ) Type: coffee eating out: 1-3 times/week during the past year weight has: remained stable what type of physical activity do you participate in: walking and other details: gym - crossfit frequency: 3-4 times per week duration: 15-30 minutes/day ravin/roman catholic: None seatbelt use: always do you feel safe at home: Yes additional social history: : Janes Guzman History 1 Elective abortions 0 Hx Para 0 Spontaneous abortions 0 Hx # Term Pregnancies Ectopic pregnancies Hx # Pregnancies Multiple births # of living children 0 HPI 17 wk ob Details: PENNIE REDMOND is a 34 year old who presents for routine OB visit. OB Visit LV Calculator Estimated Delivery Date Method Current WG Current Estimate 06/03/25 LMP (Certain) 17w 2d Other Estimates 06/06/25 Ultrasound #1 16w 6d Expected Delivery Route/Plan Labor Preferences- CB/BF classes: [] labor support person: [] labor intervention preferences: [] pain management options preferred: [] cut cord/dad catch: [] : [] PP control planned: [] discussed possible routes of delivery and associated risks: [] special requests: [] Specific Issue/Plans Covid status: [] Flu vaccine: [] Tdap vaccine: [] Rhogam: [] LARC form signed: [] Problem list reviewed and updated with the most current plan of care details and appropriate orders placed. Relevant counseling for the gestational age provided. Continue routine care and follow up unless otherwise noted in visit notes/problem list details Initial Weight: 170 lb Date -?-?-?-?-?-?-?-?-?-?-?-?- EGA Weight BP Urine Prot -?-?-?-?-?-?-?-?-?-?-?-?- Glucose FHR FuHt Pres Dilation -?-?-?-?-?-?-?-?-?-?-?-?- Effaced St Visit Note 10/31/24 -?-?-?-?-?-?-?-?-?-?-?-?- 9w 2d 170 lb 8 oz (+8 oz) 124/80 -?-?-?-?-?-?-?-?-?-?-?-?- 173 -?-?-?-?-?-?-?-?-?-?-?-?- KW- CRL 2.07 and cons with dates. accepts NIPT 11/29/24 -?-?-?-?-?-?-?-?-?-?-?-?- 13w 3d 174 lb 4 oz (+4 lb 4 oz) 114/65 Negative -?-?-?-?-?-?-?-?-?-?-?-?- Negative 150 -?-?-?-?-?-?-?-?-?-?-?-?- SM- no vb crampi ng 12/26/24 -?-?--?-?-?-?-?-?-?-?-?-?- 17w 2d 177 lb 9 oz (+7 lb 9 oz) 118/79 Negative -?-?-?-?-?-?-?-?-?-?-?-?- Negative 147 -?-?-?-?-?-?-?-?-?-?-?-?- JV- feeling some fluttering and has some numbness on the right. going to [place] for a 'baby longoria ACOG First Trimester First Trimester: Desire for , Alcohol, Tobacco Cessation, Illicit/Recreational Drug/Substance Use, Intimate Partner Violence, Barriers to care, Unstable Housing, Communication Barriers, Environmental/Work Hazards, Anticipated Course of Care, Toxoplasmosis Precations, Use of Any medications, Sexual activity, Exercise, Dental Care, Sauna/Hot tub use, Seat Belt use, Childbirth classes/Hospital facilities, Travel, Indications for Ultrasound and Screening for Aneuploidy; Discussed Second Trimester Second Trimester: Signs and Symptoms of Labor, Selecting a care provider, Reproductive Life Planning & Contreception, Care Planning, Depression/Anxiety and Intimate Partner Violence; Discussed Tobacco Cessation Third Trimester Third Trimester: Pain Management Plans, Labor support person(s), Immediate Larc, Signs and Symptoms of Preeclampsia, Infant Feeding No , [place] Education and Family Medical Leave or Disability Forms Results POC Urinalysis 2 Dip (Clinic) Office Urine Glucose Negative Last Edit by Florinda Hoffman on 12/26/24 14 :40 Office Urine Protein Negative Last Edit by Flroinda Hoffman on 12/26/24 14 :40 Coding Level of Care Code OB Routine Diagnoses 17 weeks gestation of Z3A.17 Weeks of gestation: 17 weeks Supervision of high-risk O09.90 Marijuana use F12.90 Assessment and Plan Assessment and Plan (1) : Status: Acute Qualifiers: Weeks of gestation: 17 weeks Qualified Code(s): Z3A.17 - 17 weeks gestation of Comment: NIPT low risk girl, Carrier neg. (2) Supervision of high-risk : Status: Acute Comment: PRR, , girl LV 06/03, : Janes (3) Marijuana use: Status: Acute Comment: Stopped; Last gummy 09/28. Random tox screen ordered Orders: Orders POC Urinalysis 2 Dip (Clinic) Today 12/26/24 3679 <Electronically signed by Emilie García DO> Date _ Emilie Riggs DO Cosigner Signature: Date (if applicable) CC: ~ [facility] Work Phone: 1(629) 505-136008-22-2025 [facility] [address], [address] [place] [id number] OFFICE VISIT Date of Service: 11/29/24 MR#: [id number] Acct: [id number] Name: PENNIE REDMOND Rep #: [id number] : 1990 Provider: Dr. Modesto Berumen MD Age/Sex: 34/F [facility] Status: Signed Intake Vital Signs 10/31/24 12:57 11/29/24 08:49 Height 5 ft 9 in 5 ft 9 in Weight: 174 lb 4 oz BMI 25.7 BP 114/65 Intake Visit Reasons: 13wk OB Traffic Control Operator Required: No Is patient in pain?: No Allergies No Known Allergies Allergy (Unverified 11/29/24 08:55) Medications ?Medication ?Instructions ?Recorded ?Confirmed ?Type docosahexaenoic acid 200 mg mg PO 10/18/24 11/29/24 Hi story capsule ( DHA) Last Menstrual Period: 08/27/24 Zika: Zika virus screening: Negative : No PFSH PFSH Medical History (Updated 11/29/24 @ 09:[address] 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) current occupational exposures/hazards: No pets and animals: No history of recent travel: [place] ([place] - frequent) out of state: Yes out of country:No sexually active: Yes Smoking Status: Never smoker second hand exposure: Yes (employee's at work) alcohol intake: current alcohol intake frequency: holidays/special occasions only details: Not while substance use type: marijuana diet: lactose free well-balanced diet: daily or most days caffeine: Yes (V8 energy ) Type: coffee eating out: 1-3 times/week during the past year weight has: remained stable what type of physical activity do you participate in: walking and other details: gym - crossfit frequency: 3-4 times per week duration: 15-30 minutes/day ravin/roman catholic: None seatbelt use: always do you feel safe at home: Yes additional social history: : Janes Guzman History 1 Elective abortions 0 Hx Para 0 Spontaneous abortions 0 Hx # Term Pregnancies Ectopic pregnancies Hx # Pregnancies Multiple births # of living children 0 HPI 13wk OB Details: PENNIE REDMOND is a 34 year old who presents for routine OB visit. OB Visit LV Calculator Estimated Delivery Date Method Current WG Current Estimate 06/03/25 LMP (Certain) 13w 3d Other Estimates 06/06/25 Ultrasound #1 13w 0d Expected Delivery Route/Plan Labor Preferences- CB/BF classes: [] labor support person: [] labor intervention preferences: [] pain management options preferred: [] cut cord/dad catch: [] : [] PP control planned: [] discussed possible routes of delivery and associated risks: [] special requests: [] Specific Issue/Plans Covid status: [] Flu vaccine: [] Tdap vaccine: [] Rhogam: [] LARC form signed: [] Problem list reviewed and updated with the most current plan of care details and appropriate ordersplaced. Relevant counseling for the gestational age provided. Continue routine care and follow up unless otherwise noted in visit notes/problem list details Initial Weight: 170 lb Date -?-?-?-?-?-?-?-?-?-?-?-?- EGA Weight BP Urine Prot -?-?-?-?-?-?-?-?-?-?-?-?- Glucose FHR FuHt Pres Dilation -?-?-?-?-?-?-?-?-?-?-?-?- Effaced St Visit Note 10/31/24 -?-?-?-?-?-?-?-?-?-?-?-?- 9w 2d 170 lb 8 oz (+8 oz) 124/80 -?-?-?-?-?-?-?-?-?-?-?-?- 173 -?-?-?-?-?-?-?-?-?-?-?-?- KW- CRL 2.07 and cons with dates. accepts NIPT 11/29/24 -?-?-?-?-?-?-?-?-?-?-?-?- 13w 3d 174 lb 4 oz (+4 lb 4 oz) 114/65 Negative -?-?-?-?-?-?-?-?-?-?-?-?- Negative 150 -?-?-?-?-?-?-?-?-?-?-?-?- SM- no vb crampi ng ACOG First Trimester First Trimester: Desire for , Alcohol, Tobacco Cessation, Illicit/Recreational Drug/Substance Use, Intimate Partner Violence, Barriers to care, Unstable Housing, Communication Barriers, Environmental/Work Hazards, Anticipated Course of Care, Toxoplasmosis Precations, Use of Any med ications, Sexual activity, Exercise, Dental Care, Sauna/Hot tub use, Seat Belt use, Childbirth classes/Hospital facilities, Travel, Indications for Ultrasound and Screening for Aneuploidy; Discussed Second Trimester Second Trimester: Signs and Symptoms of Labor, Selecting a care provider, Reproductive Life Planning & Contreception, Care Planning, Depression/Anxiety and Intimate Partner Violence; Discussed Tobacco Cessation Third Trimester Third Trimester: Pain Management Plans, Labor support person(s), Immediate Larc, Signs and Symptoms of Preeclampsia, Infant Feeding No , Education and Family Medical Leave or Disability Forms Results POC Urinalysis 2 Dip (Clinic) Office Urine Glucose Negative Last Edit by Trista Shaw on 11/29/24 09:01 Office Urine Protein Negative Last Edit by Trista Shaw on 11/29/24 09:01 Coding Level of Care Code OB Routine Diagnoses Marijuana use F12.90 Supervision of high-risk O09.90 13 weeks gestation of Z3A.13 Weeks of gestation: 13 weeks ADHD F90.9 Assessment and Plan Assessment and Plan (1) Marijuana use: Status: Acute Comment: Stopped; Last gummy 09/28. Random tox screen ordered (2) Supervision of high-risk : Status: Acute Comment: PRR, , girl LV 06/03, : Janes (3) : Status: Acute Qualifiers: Weeks of gestation: 13 weeks Qualified Code(s): Z3A.13 - 13 weeks gestation of Comment: NIPT low risk girl, Carrier neg. (4) ADHD: Status: Inactive Comment: Stopped Adderall 10/01 (was on 5mg) Orders: Orders POC Urinalysis 2 Dip (Clinic) Today 11/29/24 0912 manuelito SIMPSON> Date _ Shagufta Berumen MD [facility] Signature: Date (if applicable) CC: ~ [facility] [id number] [facility] [address] [place] [address], [address] [place] [address] OFFICE VISIT Date of Service: 10/31/24 MR#: [id number] Acct: [id number] Name: BECKYCECYGusPENNIE Marcellus Rep #: [id number] : 1990 Provider: ANANT Dee Age/Sex: 33/F Location: [facility] [place] Status: Signed Intake Vital Signs 10/18/24 09:06 10/31/24 12:57 Height 5 ft 9 in 5 ft 9 in Weight: 170 lb 8 oz BMI 25.2 BP 124/80 H Intake Visit Reasons: *NEW* NOB LMP 08/27, LV 06/03 Chief Complaint: New OB Traffic Control Operator Required: No Is patient in pain?: No Allergies No Known Allergies Allergy (Unverified 10/31/24 13:02) Medications ?Medication ?Instructions ?Recorded ?Confirmed ?Type docosahexaenoic acid 200 mg mg PO 10/18/24 10/31/24 Hi story capsule ( DHA) Last Menstrual Period: 08/27/24 : Yes PFSH PFSH Surgical History [place] teeth removed Family History Mother Alcoholism Depression Suicide attempt Grandmother Alcoholism Brother Oral cancer Asthma Aunt Skin cancer Grandfather Skin cancer Social History adopted: No household members: spouse number of children: 0 current occupational status: employed 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[employer]) current occupational exposures/hazards: No pets and animals: No history of recent travel: Yes ([place] - frequent) out of state: Yes out of country:No sexually active: Yes Smoking Status: Never smoker second hand exposure: Yes (employee's at work) alcohol intake: current alcohol intake frequency: holidays/special occasions only details: Not while substance use type: marijuana diet: lactose free well-balanced diet: daily or most days caffeine: Yes (V8 energy ) Type: coffee eating out: 1-3 times/week during the past year weight has: remained stable what type of physical activity do you participate in: walking and other details: gym - crossfit frequency: 3-4 times per week duration: 15-30 minutes/day ravin/roman catholic: None seatbelt use: always do you feel safe at home: Yes additional social history: : Janes Guzman History 1 Elective abortions 0 Hx Para 0 Spontaneous abortions 0 Hx # Term Pregnancies Ectopic pregnancies Hx # Pregnancies Multiple births # of living children 0 HPI *NEW* NOB LMP 08/27, LV 06/03 Details: PENNIE REDMOND is a 33 year old who presents for New OB visit. OB Visit LV Calculator Estimated Delivery Date Method Current WG Current Estimate 06/03/25 LMP (Certain) 9w 2d Other Estimates 06/06/25 Ultrasound #1 8w 6d Estimated Due Date: 06/03/25 Expected Delivery Route/Plan Labor Preferences- CB/BF classes: [] labor support person: [] labor intervention preferences: [] pain management options preferred: [] cut cord/dad catch: [] : [] PP control planned: [] discussed possible routes of delivery and associated risks: [] special requests: [] Specific Issue/Plans Covid status: [] Flu vaccine: [] Tdap vaccine: [] Rhogam: [] LARC form signed: [] Problem list reviewed and updated with the most current plan of care details and appropriate ordersplaced. Relevant counseling for the gestational age provided. Continue routine care and follow up unless otherwise noted in visit notes/problem list details Initial Weight: 170 lb Date -?-?-?-?-?-?-?-?-?-?-?-?- EGA Weight BP Urine Prot -?-?-?-?-?-?-?-?-?-?-?-?- Glucose FHR FuHt Pres Dilation -?-?-?-?-?-?-?-?-?-?-?-?- Effaced St Visit Note 10/31/24 -?-?-?-?-?-?-?-?-?-?-?-?- 9w 2d 170 lb 8 oz (+8 oz) 124/80 -?--?-?-?-?-?-?-?-?-?-?-?- 173 -?-?-?-?-?-?-?-?-?-?-?-?- KW- CRL 2.07 and cons with dates. accepts NIPT Menstrual History Last Menstrual Period: 08/27/24 Reported LMP: definite Normal amount/duration: Yes (Stopped BC in June - was on for 11 years) Frequency in days: 31 On hormonal BC at conception: No hCG+: 10/01/24 Antepartum Record Genetic Screening: Congenital Heart Defect: Other, Neural Tube Defect: Other, Hemoglobinopathy Or Carrier: Other, Cystic Fibrosis: Other, Chromosome Abnormality: Other, Drew-Sachs: Other, Hemophilia: Other, Intellectual Disability/Autism: Other, Recurrent Loss/Stillbirth: Other, Other Structural Defect: Other, Other Genetic Disease: Other and Maternal Metabolic Disorder: Other Infection History: Live with someone with TB or Exposed to TB: No, Patient or Partner has history of Genital Herpes: No, Rash or Viral illness since last mentrual period: No, Prior GBS-Infected child: No, History of STD: No, HIV Infection: No, History of Hepatitis: No, Recent travel outside of [place]: No, Concern for hepatitis exposure: No, Varicella immune: Yes (Had vaccine) and Covid Vaccinated: No Medical History Medical History: Positive: Psychiatric (ADHD), Seasonal allergies and Operations/hospitalizations ([place]) and Negative: Diabetes, Hypertension, Heart disease, Auto-immune disorder, Kidney disease/UTI, Neurologic/epilepsy, Depression/ depression, Hepatitis/liver disease, Varicosities/phleb itis, Thyroid dysfunction, Trauma/domestic violence, History of blood transfusions, D (Rh) Sensitized, Pulmonary (e.g.,TB,Asthma), Drug/latex allergies/reactions, Breast, Acoustical Tile Patternmaker surgery, Anesthetic complications, History of abnormal pap, Uterine anomaly/carol, Infertility, Anti-retroviral treatment, Rele vant family history and Other ACOG First Trimester First Trimester: Desire for , Alcohol, Tobacco Cessation, Illicit/Recreational Drug/Substance Use, Intimate Partner Violence, Barriers to care, Unstable Housing, Communication Barriers, Environmental/Work Hazards, Anticipated Course of Care, Toxoplasmosis Precations, Use of Any med ications, Sexual activity, Exercise, Dental Care, Sauna/Hot tub use, Seat Belt use, Childbirth classes/Hospital facilities, , Travel, Indications for Ultrasound and Screening for Aneuploidy Second Trimester Second Trimester: Signs and Symptoms of Labor, Selecting a care provider, Reproductive Life Planning & Contreception, Care Planning, Depression/Anxiety and Intimate Partner Violence; Discussed Tobacco Cessation Third Trimester Third Trimester: Pain Management Plans, Labor support person(s), Immediate Larc, Signs and Symptoms of Preeclampsia, Infant Feeding Yes , [place] Education and Family Medical Leave or Disability Forms ROS Const Reports system reviewed and no additional complaints, except as documented, Denies fatigue, Denies headache(s) and Denies lethargy ENT Denies headache(s) Card Reports system reviewed and no additional complaints, except as documented Resp Reports system reviewed and no additional complaints, except as documented GI Reports system reviewed and no additional complaints, except as documented, Denies abdominal pain, Denies constipation, Denies cramping, Denies diarrhea and Denies dyspepsia Reports system reviewed and no additional complaints, except as documented, Denies abnormal vaginalbleeding, Denies difficulty voiding, Denies dyspareunia and Denies dysuria Musc Reports system reviewed and no additional complaints, except as documented Skin/Breast Reports system reviewed and no additional complaints, except as documented Neuro Yes system reviewed and no additional complaints, except as documented and No headache(s) Psych Reports system reviewed and no additional complaints, except as documented, Denies anhedonia and Denies anxiety Endo Reports system reviewed and no additional complaints, except as documented and Denies fatigue Exam Const General: cooperative, healthy appearing and comfortable Neck Neck: normal visual inspection and full ROM Chest Chest palpation & inspection: normal inspection of the chest Breast inspection: normal inspection of the breasts and normal inspection of the axillae Breast palpation: normal palpation of the breasts and normal palpation of the axillae Resp Effort & Inspection: normal respiratory effort and able to speak in complete sentences GI Inspection: normal to inspection Palpation: soft External Female Exam: normal external appearance and normal appearance of the urethra Urethra: normal appearance of the urethra Skin General: no rashes or lesions noted Neuro General: patient alert, patient awake and patient oriented x3 Extrem General: normal to inspection and full ROM Psych Appearance: grossly normal and well kempt Mental Status: mental status grossly normal Mood: congruent mood Affect: normal affect Speech and Movement: speech and movement normal Thought Process: normal Thought Content: normal Coding Level of Care Code OB Routine Diagnoses Marijuana use F12.90 Supervision of high-risk O09.90 9 weeks gestation of Z3A.09 Weeks of gestation: 9 weeks Oral herpes B00.2 ADHD F90.9 Assessment and Plan Assessment and Plan (1) Marijuana use: Status: Acute Comment: Stopped; Last gummy 09/28. Random tox screen ordered (2) Supervision of high-risk : Status: Acute Comment: , LV 06/03, : Janes (3) : Status: Acute Qualifiers: Weeks of gestation: 9 weeks Qualified Code(s): Z3A.09 - 9 weeks gestation of Comment: Discussed genetic/carrier testing - desires genetic w/gender, undecided on carrier (4) Oral herpes: Status: Acute (5) ADHD: Status: Acute Comment: Stopped Adderall 10/01 (was on 5mg) Comments Comments: Patient oriented to practice and discussed care expectations and screenings. ACOG book offered to patient. Discussed routine and specially indicated labs if needed- patient consents to testing. See problem list details for plan information. Optional screening including maternal carrier screenings, neural tube defect screening, genetic screening options including quad screen, nuchal translucency, sequential screening, and NIPT screening offered to patient and patient chose: NIPT 10/31/24 1335 s CNMarcellus> Date _ Ghazala Dee CNM Cosigner Signature: Date (if applicable) CC: ~ [facility]07-11-2025 Evaluation note* Diagnosis Onset Date Resolution Status Admit Date ADHD acute October 18 8:14am Marijuana use acute October 18, 2024 8:14am Oral herpes acute October 18 8:14am acute October 18 8:14am Supervision of high-risk acute October 18, 2024 8:14am ADHD acute October 31 12:56pm Marijuana use acute October 31, 2024 12:56pm Oral herpes acute October 31 12:56pm acute October 31 12:56pm Supervision of high-risk acute October 31, 2024 12:56pm [facility] Work Phone: [phone] Evaluation note* Diagnosis Onset Date Resolution Status Admit Date Marijuana use acute October 18, 2024 8:14am acute October 18 8:14am Supervision of high-risk acute October 18, 2024 8:14am ADHD inactive October 18 8:14am Oral herpes inactive October 18 8:14am Marijuana use acute October 31, 2024 12:56pm acute October 31 12:56pm Supervision of high-risk acute October 31, 2024 12:56pm ADHD inactive October 31 12:56pm Oral herpes inactive October 31 12:56pm Marijuana use acute November 8:47am acute November 29, 2 025 8:47am Supervision of high-risk acute November 29 8:47am ADHD inactive November 29, 025 8:47am [facility] Work Phone: [phone] Evaluation note* Diagnosis Onset Date Resolution Status Admit Date Marijuana use acute October 18, 2024 8:14am acute October 18 8:14am Supervision of high-risk acute October 18, 2024 8:14am ADHD inactive October 18 8:14am Oral herpes inactive October 18 8:14am Marijuana use acute October 31, 2024 12:56pm acute October 31 12:56pm Supervision of high-risk acute October 31, 2024 12:56pm ADHD inactive October 31 12:56pm Oral herpes inactive October 31 12:56pm Marijuana use acute November 8:47am acute November 29, 025 8:47am Supervision of high-risk acute November 29 8:47am ADHD inactive November 29, 2 025 8:47am Marijuana use acute December 092024 2:32pm acute December 2:32pm Supervision of high-risk acute December 26, 2024 2:32pm [facility] Work Phone: [phone] 208-431807-11-2025 Evaluation note* Diagnosis Onset Date Resolution Status Admit Date Marijuana use acute October 18, 2024 8:14am acute October 18 8:14am Supervision of high-risk acute October 18, 2024 8:14am ADHD inactive October 18 8:14am Oral herpes inactive October 18 8:14am Marijuana use acute October 31, 2024 12:56pm acute October 31 12:56pm Supervision of high-risk acute October 31, 2024 12:56pm ADHD inactive October 31 12:56pm Oral herpes inactive October 31 12:56pm Marijuana use acute November 8:47am acute November 29, 2 025 8:47am Supervision of high-risk acute November 29 8:47am ADHD inactive November 29, 025 8:47am Marijuana use acute December 092024 2:32pm acute December 2:32pm Supervision of high-risk acute December 26, 2024 2:32pm Low lying placenta nos or without hemorrhage, second trimester acute January 16 2:00pm Marijuana use acute January 2:00pm acute January 16 2:00pm Supervision of high-risk acute January 16 2:00pm [facility] [employer] Work Phone: [phone] 939-427605-05-2025 Telephone encounter Note* Telephone Encounter - Norman Cervantes PA-C - 08/12/2024 10:36 AM EDT Pt is overdue for annual and no-showed last visit. Please call to schedule. Sent last refill. Norman Cervantes PA-C [facility]05-05-2025 Miscellaneous Notes* Telephone Encounter - Norman Cervantes PA-C - 08/12/2024 10:36 AM EDT Pt is overdue for annual and no-showed last visit. Please call to schedule. Sent last refill. Norman Cervantes PA-C documented in this encounterBl[facility] History of Present illness Narrative* Norman Cervantes PA-C - 07/19/2023 9:04 AM EDT SUBJECTIVE Pennie Redmond is a 32 year old woman who presents for her annual exam. Last pap -07/13/22; discussed cotesting for HPV this year. Patient's last menstrual period was 06/05/2023 (approximate). (Menstrual status: Drug Induced Amenorrhea). Periods usually last 3-4 days, moderate bleeding, +dysmenorrhea. She uses Jon taking placebos, but typically doesn't have periods. She was on antibiotics in April. She is getting in December and wants to plan then. Denies vaginal itching, burning, discharge. She would like STD testing. Discussed health maintenance, including regular aerobic exercise, low sugar diet, and periodic exams. HISTORIES FAMILY HISTORY Problem Relation Age of Onset other (oral cancer) Brother Melanoma Maternal Aunt Osteoporosis Other Cancer Other possible ovarian cancer? PAST MEDICAL HISTORY Diagnosis Date Dysmenorrhea Herpes labialis History of herniated intervertebral disc PAST SURGICAL HISTORY Procedure Laterality Date DENTAL SURGERY HX EXTRACTION, ERUPTED TOOTH OR EXPOSED ROOT (ELEVATION AND/OR FORCEPS REMOVAL) 05/28/2015 Social History Tobacco Use Smoking status: Never Smokeless tobacco: Never Vaping Use Vaping Use: Never used Substance Use Topics Alcohol use: Yes Drug use: Never There is no problem list on file for this patient. ALLERGIES No Known Allergies Current Outpatient Medications Medication Sig dextroamphetamine-amphetamine (ADDERALL) 10 mg tablet Take 1 tablet by mouth twice daily. Drospirenone-Ethinyl Estradiol (JON 28) 3-0.02 mg per tablet Take 1 tablet by mouth once daily. TAKE 1 active TABLET BY MOUTH ONCE DAILY for continuous use; no placebos No current facility-administered medications for this visit. REVIEW OF SYSTEMS GENERAL: No weight loss, malaise or fevers HEENT: No changes in hearing or vision NECK: Negative for lumps, goiter, pain and significant neck swelling RESPIRATORY: Negative for cough, wheezing, dyspnea or shortness of breath CARDIOVASCULAR: Negative for chest pain or palpitations GI: Negative for abdominal discomfort, blood in stools or black stools, change in bowel habit, diarrhea, nausea, vomiting, constipation : No history of dysuria, frequency or incontinence UTILIZATION REVIEW SPECIALIST: Negative for abnormal vaginal bleeding, abnormal vaginal discharge or breast symptoms ENDOCRINE: Negative for cold or heat intolerance, polyuria, polydipsia and goiter NEURO: No history of headaches, syncope, paralysis, seizures or tremors OBJECTIVE BP 124/76 Ht 5' 8 (1.73m) Wt 170 lb (77.1kg) LMP 06/05/2023 BMI 25.85 kg/(m^2). HEENT: Within normal limits NECK: Supple, no thyromegaly BREASTS: No masses, no nipple discharge HEART: Regular rate and rhythm without murmur, rub, or gallop LUNGS: Clear bilaterally to auscultation ABDOMEN: No masses, non tender, no hernias, no hepatosplenomegaly PELVIC: EGBUS: No lesions, normal appearance VAGINA: scant white discharge, no blood, no lesions CERVIX: No lesions, non tender UTERUS: Anteverted, normal size, non tender ADNEXA: Non tender, no masses RECTOVAGINAL: Not examined EXTREMITIES: No edema, no calf tenderness NEUROLOGICAL: Grossly intact ASSESSMENT/PLAN: 1. Women's annual routine gynecological examination - ICD9: V72.31, ICD10: Z01.419 (primary diagnosis) - Completed pelvic and breast exam - Completed pap exam - Encouraged monthly BSE - Follow up for annual exam in one year. 2. Screening for malignant neoplasm of cervix - ICD9: V76.2, ICD10: Z12.4 - Completed pap exam - Follow up for annual exam in one year. - PAP/HPV MRNA E6/E7 RFX HPV 16,18/45 3. Encounter for surveillance of contraceptive pills - ICD9: V25.41, ICD10: Z30.41 - discussed with patient on how to take OCP's. - counseled on benefits, risks and possible severe side effects of OCP's. - discussed need to use Condoms to help to prevent STD's including HIV etc. - DROSPIRENONE 3 MG-ETHINYL ESTRADIOL 0.02 MG TABLET 4. Vaginal discharge - ICD9: 623.5, ICD10: N89.8 - CHLAMYDIA/N.GONORRHOEAE,T.VAGINALIS,RNA,QL,TMA,PAP VIAL - HIV 1/2 COMBO WITH REFLEX TO DIFFERENTIATION - HEP B SURF AG CONFRM - HEPATITIS C ANTIBODY IA WITH CONFIRMATION - SYPHILIS ANTIBODY CASCADING REFLEX - HERPES SIMPLEX TYPE 1 AND 2 IG 5. Other problems related to lifestyle - ICD9: V69.8, ICD10: Z72.89 - CHLAMYDIA/N.GONORRHOEAE,T.VAGINALIS,RNA,QL,TMA,PAP VIAL - HIV 1/2 COMBO WITH REFLEX TO DIFFERENTIATION - HEP B SURF AG CONFRM - HEPATITIS C ANTIBODY IA WITH CONFIRMATION - SYPHILIS ANTIBODY CASCADING REFLEX - HERPES SIMPLEX TYPE 1 AND 2 IG 6. Irregular bleeding - ICD9: 626.4, ICD10: N92.6 Norman Cervantes PA-C Return in about 1 year (around 07/18/2024) for Annual Exam. documented in this encounterBl[facility]03[facility] Telephone encounter Note * Telephone Encounter - Pattie Rajani - 06/22/2023 11:51 AM EDT Patient submitted online appointment request, lm to c/b. Unsure of department or service requested.Please assist if patient calls back. FirstName : Pennie LastName : Nyla Pronouns : PronounsOther : Email : [email or web address] Phone : [phone] Birthdate : 1990 12:00:00 AM BestTimeToCallBack : Morning AppointmentDate : Soonest available PhysicianRequested : Symptoms : OptIn : False [id number] Miscellaneous Notes* Telephone Encounter - Pattie Thuy Saxena - 06/22/2023 11:51 AM EDT Patient submitted online appointment request, lm to c/b. Unsure of department or service requested.Please assist if patient calls back. FirstName : Pennie LastName : Beckycecyk Pronouns : PronounsOther : Email : [email or web address] Phone : [phone] Birthdate : 1990 12:00:00 AM BestTimeToCallBack : Morning AppointmentDate : Soonest available PhysicianRequested : Symptoms : OptIn : False documented in this [facility]04-05-2023 History of Present illness Narrative* Norman Cervantes PA-C - 07/13/2022 9:18 AM EDT SUBJECTIVE Pennie Redmond is a 31 year old woman who presents for her annual exam. Last pap -05/19/21. No LMPrecorded (lmp unknown). (Menstrual status: Drug Induced Amenorrhea). No periods while using Jon forcontinuous cycle; tolerating well. Denies vaginal itching, burning, discharge. Discussed health maintenance, including regular aerobic exercise, low sugar diet, and periodic exams. She wants to checkwith Dr. Tate to see if she finished HPV vaccine. Her brother was treated for oral cancer. HISTORIES FAMILY HISTORY Problem Relation Age of Onset other (oral cancer) Brother Melanoma Maternal Aunt Osteoporosis Other Cancer Other possible ovarian cancer? PAST MEDICAL HISTORY Diagnosis Date Dysmenorrhea Herpes labialis History of herniated intervertebral disc PAST SURGICAL HISTORY Procedure Laterality Date DENTAL SURGERY HX EXTRACTION, ERUPTED TOOTH OR EXPOSED ROOT (ELEVATION AND/OR FORCEPS REMOVAL) 05/28/2015 Social History Tobacco Use Smoking status: Never Smokeless tobacco: Never Substance Use Topics Alcohol use: Yes Drug use: Never There is no problem list on file for this patient. ALLERGIES No Known Allergies Current Outpatient Medications Medication Sig Chlorhexidine Gluconate (PERIDEX) 0.12 % solution RINSE MOUTH WITH 1/2 OUNCE TWICE DAILY AFTER BREAKFAST AND BEFORE BEDTIME. SPIT OUT DO NOT SWALLOW. dextroamphetamine-amphetamine (ADDERALL) 10 mg tablet Take 1 tablet by mouth twice daily. Drospirenone-Ethinyl Estradiol (JON 28) 3-0.02 mg per tablet Take 1 tablet by mouth once daily. TAKE 1 active TABLET BY MOUTH ONCE DAILY for continuous use; no placebos No current facility-administered medications for this visit. REVIEW OF SYSTEMS GENERAL: No weight loss, malaise or fevers HEENT: No changes in hearing or vision NECK: Negative for lumps, goiter, pain and significant neck swelling RESPIRATORY: Negative for cough, wheezing, dyspnea or shortness of breath CARDIOVASCULAR: Negative for chest pain or palpitations GI: Negative for abdominal discomfort, blood in stools or black stools, change in bowel habit, diarrhea, nausea, vomiting, constipation : No history of dysuria, frequency or incontinence UTILIZATION REVIEW SPECIALIST: Negative for abnormal vaginal bleeding, abnormal vaginal discharge or breast symptoms ENDOCRINE: Negative for cold or heat intolerance, polyuria, polydipsia and goiter NEURO: No history of headaches, syncope, paralysis, seizures or tremors OBJECTIVE BP 136/72 Ht 5' 8 (1.73m) Wt 181 lb (82.1kg) BMI 27.53 kg/(m^2). HEENT: Within normal limits NECK: Supple, no thyromegaly BREASTS: No masses, no nipple discharge HEART: Regular rate and rhythm without murmur, rub, or gallop LUNGS: Clear bilaterally to auscultation ABDOMEN: No masses, non tender, no hernias, no hepatosplenomegaly PELVIC: EGBUS: No lesions, normal appearance VAGINA: No discharge, no blood, no lesions CERVIX: No lesions, non tender UTERUS: Anteverted, normal size, non tender ADNEXA: Non tender, no masses RECTOVAGINAL: Not examined EXTREMITIES: No edema, no calf tenderness NEUROLOGICAL: Grossly intact ASSESSMENT/PLAN: 1. Women's annual routine gynecological examination - ICD9: V72.31, ICD10: Z01.419 (primary diagnosis) - Completed pelvic and breast exam - Completed pap exam - Encouraged monthly BSE - Follow up for annual exam in one year. - PAP REFLEX HPV MRNA WHEN ASCUS 2. Screening for malignant neoplasm of cervix - ICD9: V76.2, ICD10: Z12.4 - Completed pap exam - Follow up for annual exam in one year. - PAP REFLEX HPV MRNA WHEN ASCUS 3. Encounter for surveillance of contraceptive pills - ICD9: V25.41, ICD10: Z30.41 - discussed with patient on how to take OCP's. - counseled on benefits, risks and possible severe side effects of OCP's. - discussed need to use Condoms to help to prevent STD's including HIV etc. - DROSPIRENONE 3 MG-ETHINYL ESTRADIOL 0.02 MG TABLET 4. Irregular bleeding - ICD9: 626.4, ICD10: N92.6 Norman Cervantes PA-C Return in about 1 year (around 07/14/2023) for Annual Exam. [facility] Miscellaneous Notes* Telephone Encounter - Charleen Escobar - 05/30/2022 3:07 PM EST Left message to return call to office. Charleen Escobar * Telephone Encounter - Padmini Marmolejo MD - 05/27/2022 8:49 AM EST Please have patient schedule her annual exam. Padmini Marmolejo MD documented in this encounterBl[facility]22 NoteHNO ID: [id number] Author: Norman Cervantes PA-C Service: ? Author Type: Physician Analytical Clerk Type: Progress Notes Filed: 05/19/2021 9:11 AM Note Text: SUBJECTIVE Pennie Redmond is a 30 year old woman who presents for her annual exam. Last pap -03/11/20. No LMP recorded (lmp unknown). (Menstrual status: Drug Induced Amenorrhea). Tolerating Jon well; no plans for in the near future. Pt c/o having bad mood swings lately, especially on the Jon placebos. Offered to try continuous use to see if that helps moods. Denies vaginal itching, burning, discharge. Discussed health maintenance, including regular aerobic exercise, low sugar diet, and periodic exams. Encouraged flu vaccine. HISTORIES FAMILY HISTORY Problem Relation Age of Onset - Osteoporosis Other - Cancer Other possible ovarian cancer? - Melanoma Maternal Aunt PAST MEDICAL HISTORY Diagnosis Date - Dysmenorrhea - Herpes labialis - History of herniated intervertebral disc PAST SURGICAL HISTORY Procedure Laterality Date - DENTAL SURGERY HX - EXTRACTION, ERUPTED TOOTH OR EXPOSED ROOT (ELEVATION AND/OR FORCEPS REMOVAL) 05/28/2015 Social History Tobacco Use - Smoking status: Never Smoker - Smokeless tobacco: Never Used Substance Use Topics - Alcohol use: Yes - Drug use: Never There is no problem list on file for this patient. ALLERGIES No Known Allergies Current Outpatient Medications Medication Sig - Drospirenone-Ethinyl Estradiol (JON 28) 3-0.02 mg per tablet Take 1 tablet by mouth once daily. No current facility-administered medications for this visit. REVIEW OF SYSTEMS GENERAL: No weight loss, malaise or fevers HEENT: No changes in hearing or vision NECK: Negative for lumps, goiter, pain and significant neck swelling RESPIRATORY: Negative for cough, wheezing, dyspnea or shortness of breath CARDIOVASCULAR: Negative for chest pain or palpitations GI: Negative for abdominal discomfort, blood in stools or black stools, change in bowel habit, diarrhea, nausea, vomiting, constipation : No history of dysuria, frequency or incontinence UTILIZATION REVIEW SPECIALIST: Negative for abnormal vaginal bleeding, abnormal vaginal discharge or breast symptoms ENDOCRINE: Negative for cold or heat intolerance, polyuria, polydipsia and goiter NEURO: No history of headaches, syncope, paralysis, seizures or tremors OBJECTIVE BP 126/74 Ht 5' 8 (1.73m) Wt 181 lb (82.1kg) BMI 27.53 kg/(m2). HEENT: Within normal limits NECK: Supple, no thyromegaly BREASTS: No masses, no nipple discharge HEART: Regular rate and rhythm without murmur, rub, or gallop LUNGS: Clear bilaterally to auscultation ABDOMEN: No masses, non tender, no hernias, no hepatosplenomegaly PELVIC: EGBUS: No lesions, normal appearance VAGINA: No discharge, no blood, no lesions CERVIX: No lesions, non tender UTERUS: Anteverted, normal size, non tender ADNEXA: Non tender, no masses RECTOVAGINAL: Not examined EXTREMITIES: No edema, no calf tenderness NEUROLOGICAL: Grossly intact ASSESSMENT/PLAN: 1. Women's annual routine gynecological examination - ICD9: V72.31, ICD10: Z01.419 (primary diagnosis) - Completed pelvic and breast exam - Completed pap exam - Encouraged monthly BSE - Follow up for annual exam in one year. - PAP REFLEX HPV MRNA WHEN ASCUS 2. Screening for malignant neoplasm of cervix - ICD9: V76.2, ICD10: Z12.4 - Completed pap exam - Follow up for annual exam in one year. - PAP REFLEX HPV MRNA WHEN ASCUS 3. Encounter for surveillance of contraceptive pills - ICD9: V25.41, ICD10: Z30.41 - discussed with patient on how to take OCP's. - counseled on benefits, risks and possible severe side effects of OCP's. - discussed need to use Condoms to help to prevent STD's including HIV etc. - DROSPIRENONE 3 MG-ETHINYL ESTRADIOL 0.02 MG TABLET 4. Irregular bleeding - ICD9: 626.4, ICD10: N92.6 5. Needs flu shot - ICD9: V04.81, ICD10: Z23 6. PMS (premenstrual syndrome) - ICD9: 625.4, ICD10: N94.3 - try Jon for continuous use Norman Cervantes PA-C Return in about 1 year (around 05/19/2022) [facility] Exam[facility] Diagnosis Encounter for surveillance of contraceptive pills Surveillance of previously prescribed contraceptive pill documented in this [facility] [place] [facility]* Diagnosis Women's annual routine gynecological examination- Primary Screening for malignant neoplasm of cervix Screening for malignant neoplasm of the cervix Encounter for surveillance of contraceptive pills Surveillance of previously prescribed contraceptive pill Irregular bleeding Irregular menstrual cycle documented in this encounter [facility] [place] [facility]* Diagnosis Women's annual routine gynecological examination- Primary Screening for malignant neoplasm of cervix Screening for malignant neoplasm of the cervix Encounter for surveillance of contraceptive pills Surveillance of previously prescribed contraceptive pill Vaginal discharge Leukorrhea, not specified as infective Other problems related to lifestyle Irregular bleeding Irregular menstrual cycle documented in this encounter [facility]* Diagnosis Encounter for surveillance of contraceptive pills Surveillance of previously prescribed contraceptive pill documented in this encounter [facility] [place] noteNo assessment information availableK[facility]erman[facility] Work Phone: Progress note Author Ghazala Dee [facility] Note Date/Time October 31, 2024 1:35 pm [facility] [address], [address] [place] [address] OFFICE VISIT Date of Service: 10/31/24 MR#: [id number] Acct: [id number] Name: PENNIE REDMOND Rep #: [id number] : 1990 Provider: ANANT Dee Age/Sex: 33/F Location: [facility] [place] Status: Signed Intake Vital Signs 10/18/24 09:06 10/31/24 12:57 Height 5 ft 9 in 5 ft 9 in Weight: 170 lb 8 oz BMI 25.2 BP 124/80 H Intake Visit Reasons: *NEW* NOB LMP 08/27, LV 06/03 Chief Complaint: New OB Traffic Control Operator Required: No Is patient in pain?: No Allergies No Known Allergies Allergy (Unverified 10/31/24 13:02) Medications ?Medication ?Instructions ?Recorded ?Confirmed ?Type docosahexaenoic acid 200 mg mg PO 10/18/24 10/31/24 Hi story capsule ( DHA) Last Menstrual Period: 08/27/24 : Yes PFSH PFSH Surgical History [place] teeth removed Family History Mother Alcoholism Depression Suicide attempt Grandmother Alcoholism Brother Oral cancer Asthma Aunt Skin cancer Grandfather Skin cancer Social History adopted: No household members: spouse number of children: 0 current occupational status: employed 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) current occupational exposures/hazards: No pets and animals: No history of recent travel: Yes ([place] - frequent) out of state: Yes out of country:No sexually active: Yes Smoking Status: Never smoker second hand exposure: Yes (employee's at work) alcohol intake: current alcohol intake frequency: holidays/special occasions only details: Not while substance use type: marijuana diet: lactose free well-balanced diet: daily or most days caffeine: Yes (V8 energy ) Type: coffee eating out: 1-3 times/week during the past year weight has: remained stable what type of physical activity do you participate in: walking and other details: gym - crossfit frequency: 3-4 times per week duration: 15-30 minutes/day ravin/roman catholic: None seatbelt use: always do you feel safe at home: Yes additional social history: : Janes Guzman History 1 Elective abortions 0 Hx Para 0 Spontaneous abortions 0 Hx # Term Pregnancies Ectopic pregnancies Hx # Pregnancies Multiple births # of living children 0 HPI *NEW* NOB LMP 08/27, LV 06/03 Details: PENNIE REDMOND is a 33 year old who presents for New OB visit. OB Visit LV Calculator Estimated Delivery Date Method Current WG Current Estimate 06/03/25 LMP (Certain) 9w 2d Other Estimates 06/06/25 Ultrasound #1 8w 6d Estimated Due Date: 06/03/25 Expected Delivery Route/Plan Labor Preferences- CB/BF classes: [] labor support person: [] labor intervention preferences: [] pain management options preferred: [] cut cord/dad catch: [] : [] PP control planned: [] discussed possible routes of delivery and associated risks: [] special requests: [] Specific Issue/Plans Covid status: [] Flu vaccine: [] Tdap vaccine: [] Rhogam: [] LARC form signed: [] Problem list reviewed and updated with the most current plan of care details and appropriate orders placed. Relevant counseling for the gestational age provided. Continue routine care and follow up unless otherwise noted in visit notes/problem list details Initial Weight: 170 lb Date -?-?-?-?-?-?-?-?-?-?-?-?- EGA Weight BP Urine Prot -?-?-?-?-?-?-?-?-?-?-?-?- Glucose FHR FuHt Pres Dilation -?-?-?-?-?-?-?-?-?-?-?-?- Effaced St Visit Note 10/31/24 -?-?-?-?-?-?-?-?-?-?-?-?- 9w 2d 170 lb 8 oz (+8 oz) 124/80 -?--?-?-?-?-?-?-?-?-?-?-?- 173 -?-?-?-?-?-?-?-?-?-?-?-?- KW- CRL 2.07 and cons with dates. accepts NIPT Menstrual History Last Menstrual Period: 08/27/24 Reported LMP: definite Normal amount/duration: Yes (Stopped BC in June - was on for 11 years) Frequency in days: 31 On hormonal BC at conception: No hCG+: 10/01/24 Antepartum Record Genetic Screening: Congenital Heart Defect: Other, Neural Tube Defect: Other, Hemoglobinopathy Or Carrier: Other, Cystic Fibrosis: Other, Chromosome Abnormality: Other, Drew-Sachs: Other, Hemophilia: Other, Intellectual Disability/Autism: Other, Recurrent Loss/Stillbirth: Other, Other Structural Defect: Other, Other Genetic Disease: Other and Maternal Metabolic Disorder: Other Infection History: Live with someone with TB or Exposed to TB: No, Patient or Partner has history of Genital Herpes: No, Rash or Viral illness since last mentrual period: No, Prior GBS-Infected child: No, History of STD: No, HIV Infection: No, History of Hepatitis: No, Recent travel outside of [place]: No, Concern for hepatitis exposure: No, Varicella immune: Yes (Had vaccine) and Covid Vaccinated: No Medical History Medical History: Positive: Psychiatric (ADHD), Seasonal allergies and Operations/hospitalizations ([place]) and Negative: Diabetes, Hypertension, Heart disease, Auto-immune disorder, Kidney disease/UTI, Neurologic/epilepsy, Depression/ depression, Hepatitis/liver disease, Varicosities/phlebitis, Thyroid dysfunction, Trauma/domestic violence, History of blood transfusions, D (Rh) Sensitized, Pulmonary (e.g.,TB,Asthma), Drug/latex allergies/reactions, Breast, Acoustical Tile Patternmaker surgery, Anesthetic complications, History of abnormal pap, Uterine anomaly/carol, Infertility, Anti-retroviral treatment, Relevant family history and Other ACOG First Trimester First Trimester: Desire for , Alcohol, Tobacco Cessation, Illicit/Recreational Drug/Substance Use, Intimate Partner Violence, Barriers to care, Unstable Housing, Communication Barriers, Environmental/Work Hazards, Anticipated Course of Care, Toxoplasmosis Precations, Use of Any medications, Sexual activity, Exercise, Dental Care, Sauna/Hot tub use, Seat Belt use, Childbirth classes/Hospital facilities, , Travel, Indications for Ultrasound and Screening for Aneuploidy Second Trimester Second Trimester: Signs and Symptoms of Labor, Selecting a care provider, Reproductive Life Planning & Contreception, Care Planning, Depression/Anxiety and Intimate Partner Violence; Discussed Tobacco Cessation Third Trimester Third Trimester: Pain Management Plans, Labor support person(s), Immediate Larc, Signs and Symptoms of Preeclampsia, Infant Feeding Yes , [place] Education and Family Medical Leave or Disability Forms ROS Const Reports system reviewed and no additional complaints, except as documented, Denies fatigue, Denies headache(s) and Denies lethargy ENT Denies headache(s) Card Reports system reviewed and no additional complaints, except as documented Resp Reports system reviewed and no additional complaints, except as documented GI Reports system reviewed and no additional complaints, except as documented, Denies abdominal pain, Denies constipation, Denies cramping, Denies diarrhea and Denies dyspepsia Reports system reviewed and no additional complaints, except as documented, Denies abnormal vaginal bleeding, Denies difficulty voiding, Denies dyspareunia and Denies dysuria Musc Reports system reviewed and no additional complaints, except as documented Skin/Breast Reports system reviewed and no additional complaints, except as documented Neuro Yes system reviewed and no additional complaints, except as documented and No headache(s) Psych Reports system reviewed and no additional complaints, except as documented, Denies anhedonia and Denies anxiety Endo Reports system reviewed and no additional complaints, except as documented and Denies fatigue Exam Const General: cooperative, healthy appearing and comfortable Neck Neck: normal visual inspection and full ROM Chest Chest palpation & inspection: normal inspection of the chest Breast inspection: normal inspection of the breasts and normal inspection of the axillae Breast palpation: normal palpation of the breasts and normal palpation of the axillae Resp Effort & Inspection: normal respiratory effort and able to speak in complete sentences GI Inspection: normal to inspection Palpation: soft External Female Exam: normal external appearance and normal appearance of the urethra Urethra: normal appearance of the urethra Skin General: no rashes or lesions noted Neuro General: patient alert, patient awake and patient oriented x3 Extrem General: normal to inspection and full ROM Psych Appearance: grossly normal and well kempt Mental Status: mental status grossly normal Mood: congruent mood Affect: normal affect Speech and Movement: speech and movement normal Thought Process: normal Thought Content: normal Coding Level of Care Code OB Routine Diagnoses Marijuana use F12.90 Supervision of high-risk O09.90 9 weeks gestation of Z3A.09 Weeks of gestation: 9 weeks Oral herpes B00.2 ADHD F90.9 Assessment and Plan Assessment and Plan (1) Marijuana use: Status: Acute Comment: Stopped; Last gummy 09/28. Random tox screen ordered (2) Supervision of high-risk : Status: Acute Comment: , LV 06/03, : Janes (3) : Status: Acute Qualifiers: Weeks of gestation: 9 weeks Qualified Code(s): Z3A.09 - 9 weeks gestation of Comment: Discussed genetic/carrier testing - desires genetic w/gender, undecided on carrier (4) Oral herpes: Status: Acute (5) ADHD: Status: Acute Comment: Stopped Adderall 10/01 (was on 5mg) Comments Comments: Patient oriented to practice and discussed care expectations and screenings. ACOG book offered to patient. Discussed routine and specially indicated labs if needed- patient consents to testing. See problem list details for plan information. Optional screening including maternal carrier screenings, neural tube defect screening, genetic screening options including quad screen, nuchal translucency, sequential screening, and NIPT screening offered to patient and patient chose: NIPT 10/31/24 1335 <Electronically signed by Ghazala michaels CNM> Date _ Ghazala Dee CNM Cosigner Signature: Date (if applicable) CC: ~ [facility] Work Phone: Progress note Author Shagufta Berumen [facility] Note Date/Time November 29, 2024 9: 12am [facility] [place] [facility] [address], [address] [place] [address] OFFICE VISIT Date of Service: 11/29/24 MR#: [id number] Acct: [id number] Name: PENNIE REDMOND Rep #: [id number] : 1990 Provider: Dr. Modesto Berumen MD Age/Sex: 34/F Location: [facility] [place] Status: Signed Intake Vital Signs 10/31/24 12:57 11/29/24 08:49 Height 5 ft 9 in 5 ft 9 in Weight: 174 lb 4 oz BMI 25.7 BP 114/65 Intake Visit Reasons: 13wk OB Traffic Control Operator Required: No Is patient in pain?: No Allergies No Known Allergies Allergy (Unverified 11/29/24 08:55) Medications ?Medication ?Instructions ?Recorded ?Confirmed ?Type docosahexaenoic acid 200 mg mg PO 10/18/24 11/29/24 Hi story capsule ( DHA) Last Menstrual Period: 08/27/24 Zika: Zika virus screening: Negative : No PFSH PFSH Medical History (Updated 11/29/24 @ 09:[address] 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[employer]) current occupational exposures/hazards: No pets and animals: No history of recent travel: Yes ([place] - frequent) out of state: Yes out of country:No sexually active: Yes Smoking Status: Never smoker second hand exposure: Yes (employee's at work) alcohol intake: current alcohol intake frequency: holidays/special occasions only details: Not while substance use type: marijuana diet: lactose free well-balanced diet: daily or most days caffeine: Yes (V8 energy ) Type: coffee eating out: 1-3 times/week during the past year weight has: remained stable what type of physical activity do you participate in: walking and other details: gym - crossfit frequency: 3-4 times per week duration: 15-30 minutes/day ravin/roman catholic: None seatbelt use: always do you feel safe at home: Yes additional social history: : Janes Guzman History 1 Elective abortions 0 Hx Para 0 Spontaneous abortions 0 Hx # Term Pregnancies Ectopic pregnancies Hx # Pregnancies Multiple births # of living children 0 HPI 13wk OB Details: PENNIE REDMOND is a 34 year old who presents for routine OB visit. OB Visit LV Calculator Estimated Delivery Date Method Current WG Current Estimate 06/03/25 LMP (Certain) 13w 3d Other Estimates 06/06/25 Ultrasound #1 13w 0d Expected Delivery Route/Plan Labor Preferences- CB/BF classes: [] labor support person: [] labor intervention preferences: [] pain management options preferred: [] cut cord/dad catch: [] : [] PP control planned: [] discussed possible routes of delivery and associated risks: [] special requests: [] Specific Issue/Plans Covid status: [] Flu vaccine: [] Tdap vaccine: [] Rhogam: [] LARC form signed: [] Problem list reviewed and updated with the most current plan of care details and appropriate orders placed. Relevant counseling for the gestational age provided. Continue routine care and follow up unless otherwise noted in visit notes/problem list details Initial Weight: 170 lb Date -?-?-?-?-?-?-?-?-?-?-?-?- EGA Weight BP Urine Prot -?-?-?-?-?-?-?-?-?-?-?-?- Glucose FHR FuHt Pres Dilation -?-?-?-?-?-?-?-?-?-?-?-?- Effaced St Visit Note 10/31/24 -?-?-?-?-?-?-?-?-?-?-?-?- 9w 2d 170 lb 8 oz (+8 oz) 124/80 -?-?-?-?-?-?-?-?-?-?-?-?- 173 -?-?-?-?-?-?-?-?-?-?-?-?- KW- CRL 2.07 and cons with dates. accepts NIPT 11/29/24 -?-?-?-?-?-?-?-?-?-?-?-?- 13w 3d 174 lb 4 oz (+4 lb 4 oz) 114/65 Negative -?-?-?-?-?-?-?-?-?-?-?-?- Negative 150 -?-?-?-?-?-?-?-?-?-?-?-?- SM- no vb crampi ng ACOG First Trimester First Trimester: Desire for , Alcohol, Tobacco Cessation, Illicit/Recreational Drug/Substance Use, Intimate Partner Violence, Barriers to care, Unstable Housing, Communication Barriers, Environmental/Work Hazards, Anticipated Course of Care, Toxoplasmosis Precations, Use of Any medications, Sexual activity, Exercise, Dental Care, Sauna/Hot tub use, Seat Belt use, Childbirth classes/Hospital facilities, Travel, Indications for Ultrasound and Screening for Aneuploidy; Discussed Second Trimester Second Trimester: Signs and Symptoms of Labor, Selecting a care provider, Reproductive Life Planning & Contreception, Care Planning, Depression/Anxiety and Intimate Partner Violence; Discussed Tobacco Cessation Third Trimester Third Trimester: Pain Management Plans, Labor support person(s), Immediate Larc, Signs and Symptoms of Preeclampsia, Infant Feeding No , [place] Education and Family Medical Leave or Disability Forms Results POC Urinalysis 2 Dip (Clinic) Office Urine Glucose Negative Last Edit by Trista Shaw on 11/29/24 09:01 Office Urine Protein Negative Last Edit by Trista Shaw on 11/29/24 09:01 Coding Level of Care Code OB Routine Diagnoses Marijuana use F12.90 Supervision of high-risk O09.90 13 weeks gestation of Z3A.13 Weeks of gestation: 13 weeks ADHD F90.9 Assessment and Plan Assessment and Plan (1) Marijuana use: Status: Acute Comment: Stopped; Last gummy 09/28. Random tox screen ordered (2) Supervision of high-risk : Status: Acute Comment: PRR, , girl LV 06/03, : Janes (3) : Status: Acute Qualifiers: Weeks of gestation: 13 weeks Qualified Code(s): Z3A.13 - 13 weeks gestation of Comment: NIPT low risk girl, Carrier neg. (4) ADHD: Status: Inactive Comment: Stopped Adderall 10/01 (was on 5mg) Orders: Orders POC Urinalysis 2 Dip (Clinic) Today 11/29/24911 <Electronically signed by Shagufta billings MD> Date _ Shagufta Berumen MD Cosigner Signature: Date (if applicable) CC: ~ [facility] Work Phone: Reason for referral (narrative)No reason for referral information availableBlSan Gabriel Valley Medical Center Work Phone: Summary Purpose Family History No Family History Records Found Relationship Condition Age at Onset Recorded Date/T [place] mother Alcoholism Unknown Depression Unknown Attempted suicide Unknown grandmother Alcoholism Unknown brother Malignant neoplasm of oral cavity Unknown Asthma Unknown aunt Malignant neoplasm of skin Unknown grandfather Malignant neoplasm of skin Unknown Advance Directives No Advanced Directives Records FoundNo Advanced Directives Records FoundNo Advanced Directives Records FoundNo Advanced Directives Records Found Chief Complaint and Reason for Visit Chief Complaint Admit Date PNOB Confirm , Vitals October 8:14am Chief Complaint Admit Date PNOB Confirm , Vitals October 8:14am *NEW* NOB LMP 08/27, LV 06/03October 31, 2024 12:56pm Reason for Visit Admit Date ADHD October 18, 2024 8:14 am Marijuana use October 18, 2024 8:14 am Oral herpes October 18, 2024 8:14 am October 18, 2024 8:14 am Supervision of high-risk October 18, 2024 8:14am ADHD October 31, 2024 12:5 6pm Marijuana use October 31, 2024 12:5 6pm Oral herpes October 31, 2024 12:5 6pm October 31, 2024 12:5 6pm Supervision of high-risk October 31, 2024 12:56pm Chief Complaint Admit Date PNOB Confirm , Vitals October 8:14am *NEW* NOB LMP 08/27, LV 06/03October 31, 2024 12:56pm 13wk OB November 29, 2024 8: 47am Reason for Visit Admit Date Marijuana use October 18, 2024 8:14 am October 18, 2024 8:14 am Supervision of high-risk October 18, 2024 8:14am ADHD October 18, 2024 8:14 am Oral herpes October 18, 2024 8:14 am Marijuana use October 31, 2024 12:5 6pm October 31, 2024 12:5 6pm Supervision of high-risk October 31, 2024 12:56pm ADHD October 31, 2024 12:5 6pm Oral herpes October 31, 2024 12:5 6pm Marijuana use November 29, 2024 8: 47am November 29, 2024 8: 47am Supervision of high-risk Augus t 2024 8:47am ADHD November 29, 2024 8: 47am Chief Complaint Admit Date PNOB Confirm , Vitals October 8:14am *NEW* NOB LMP 08/27, LV 06/03October 31, 2024 12:56pm 13wk OB November 29, 2024 8: 47am 17 wk ob December 26, 2024 2:32pm Reason for Visit Admit Date Marijuana use October 18, 2024 8:14 am October 18, 2024 8:14 am Supervision of high-risk October 18, 2024 8:14am ADHD October 18, 2024 8:14 am Oral herpes October 18, 2024 8:14 am Marijuana use October 31, 2024 12:5 6pm October 31, 2024 12:5 6pm Supervision of high-risk October 31, 2024 12:56pm ADHD October 31, 2024 12:5 6pm Oral herpes October 31, 2024 12:5 6pm Marijuana use November 29, 2024 8: 47am November 29, 2024 8: 47am Supervision of high-risk Augus t 2024 8:47am ADHD November 29, 2024 8: 47am Marijuana use December 26, 2024 2:32pm December 26, 2024 2:32pm Supervision of high-risk Septe mber 2024 2:32pm Chief Complaint Admit Date PNOB Confirm , Vitals October 8:14am *NEW* NOB LMP 08/27, LV 06/03October 31, 2024 12:56pm 13wk OB November 29, 2024 8: 47am 17 wk ob December 26, 2024 2:32pm 20wk2d ob January 16, 2025 2: 00pm Reason for Visit Admit Date Marijuana use October 18, 2024 8:14 am October 18, 2024 8:14 am Supervision of high-risk October 18, 2024 8:14am ADHD October 18, 2024 8:14 am Oral herpes October 18, 2024 8:14 am Marijuana use October 31, 2024 12:5 6pm October 31, 2024 12:5 6pm Supervision of high-risk October 31, 2024 12:56pm ADHD October 31, 2024 12:5 6pm Oral herpes October 31, 2024 12:5 6pm Marijuana use November 29, 2024 8: 47am November 29, 2024 8: 47am Supervision of high-risk Augus t 2024 8:47am ADHD November 29, 2024 8: 47am Marijuana use December 26, 2024 2:32pm December 26, 2024 2:32pm Supervision of high-risk Septe mber 2024 2:32pm Low lying placenta nos or wi thout hemorrhage, second trimester January 16, 2025 2:00pm Marijuana use January 16, 2025 2: 00pm January 16, 2025 2: 00pm Supervision of high-risk Octob er 2024 2:00pm Additional Source Comments INFORMATION SOURCE (unrecogn ized section and content) DATE CREATED AUTHOR 07/01/2021 [facility] DATE CREATED AUTHOR AUTHOR'S ORGANIZ ATION 06/23/2023 [facility] [place] [facility] DATE CREATED AUTHOR AUTHOR'S ORGANIZ ATION 01/12/2025 [facility] DATE CREATED AUTHOR AUTHOR'S ORGANIZ ATION 02/11/2025 [facility] Source Comments (unrecognize d section and content) In the event this informatio n is protected by the Federal Confidentiality of Alcohol and Drug Abuse Patient Records regulations: The Federal rules restrict any use of the information to criminally investigate or prosecute any alcohol or drug abuse patient.[facility] the event this information is protected by the Federal Confidentiality of Alcohol and Drug Abuse Patient Records regulations: The Federal rules restrict any use of the information to criminally investigate or prosecute any alcohol or drug abuse patient.[facility] the event this information is protected by the Federal Confidentiality of Alcohol and Drug Abuse Patient Records regulations: The Federal rules restrict any use of the information to criminally investigate or prosecute any alcohol or drug abuse patient.[facility] the event this information is protected by the Federal Confidentiality of Alcohol and Drug Abuse Patient Records regulations: The Federal rules restrict any use of the information to criminally investigate or prosecute any alcohol or drug abuse patient.[facility] Reason for Visit (unrecogniz ed section and content) Reason Comments Refill Request Reason Comments 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 [address] [facility] [place] [address] PCP - General Family Medicine 07/04/18 Norman Cervantes PA-C [address] [facility] [address] [place] [address] Women's Health Specialist 07/03/18 Area Coordinator Relationship Specialty Start Date End Date Shad Tate Jr. [address] [place] [address] PCP - General Family Medicine 07/04/18 Norman Cervantes PA-C [address] [address] Women's Health Specialist 07/03/18 Area Coordinator Relationship Specialty Start Date End Date Shad Tate Jr. [address] [place] [address] PCP - General Family Medicine 07/04/18 Norman Cervantes PA-C [address] [address] Women's Health Specialist 07/03/18 Area Coordinator Relationship Specialty Start Date End Date Shad Tate Jr. [address] [facility] [place] [address] PCP - General Family Medicine 07/04/18 Norman Cervantes PA-C [address] [address] Women's Health Specialist 07/03/18 Team Status: Active Member Role/Relationship Status Dates Dr. Janes Tate MD Primary Care Provider Active Team Status: Active Member Role/Relationship Status Dates Dr. Janes Tate MD Primary Care Provider Active Start: July 18, 2024 Dr. Janes Tate MD Attending Provider Active Start: July 18, 2024 Team Status: Inactive Member Role/Relationship Status Dates Dr. Janes Tate MD Primary Care Provider Active Start: October 18, 2024 End: October 18, 2024 Dr. Janes Tate MD Referring Provider Active Start: October 18, 2024 End: October 18, 2024 Dr. Shagufta Berumen MD Attending Provider Active Start: October 18, 2024 End: October 18, 2024 Team Status: Inactive Member Role/Relationship Status Dates Dr. Janes Tate MD Primary Care Provider Active Start: October 31, 2024 End: October 31, 2024 Dr. Janes Tate MD Referring Provider Active Start: October 31, 2024 End: October 31, 2024 Ghazala Dee CNM Attending Provider Active S tart: October 31, 2024 End: October 31, 2024 Team Status: Inactive Member Role/Relationship Status Dates Dr. Jaens Tate MD Primary Care Provider Active Start: October 31, 2024 End: October 31, 2024 Ghazala Dee CNM Attending Provider Active S tart: October 31, 2024 End: October 31, 2024 Team Status: Inactive Member Role/Relationship Status Dates Dr. Janes Tate MD Primary Care Provider Active Start: November 11, 2024 End: November 11, 2024 Ghazala Dee CNM Attending Provider Active S tart: November 11, 2024 End: November 11, 2024 Team Status: Inactive Member Role/Relationship Status Dates Dr. Janes Tate MD Primary Care Provider Active Start: October 18, 2024 End: October 18, 2024 Dr. Janes Tate MD Referring Provider Active Start: October 18, 2024 End: October 18, 2024 Dr. Shagufta Berumen MD Attending Provider Active Start: October 18, 2024 End: October 18, 2024 Team Status: Inactive Member Role/Relationship Status Dates Dr. Janes Tate MD Primary Care Provider Active Start: October 31, 2024 End: October 31, 2024 Dr. Janes Tate MD Referring Provider Active Start: October 31, 2024 End: October 31, 2024 Ghazala Dee CNM Attending Provider Active S tart: October 31, 2024 End: October 31, 2024 Team Status: Inactive Member Role/Relationship Status Dates Dr. Janes Tate MD Primary Care Provider Active Start: October 31, 2024 End: October 31, 2024 Ghazala Dee CNM Attending Provider Active S tart: October 31, 2024 End: October 31, 2024 Team Status: Inactive Member Role/Relationship Status Dates Dr. Janes Tate MD Primary Care Provider Active Start: November 11, 2024 End: November 11, 2024 Ghazala Dee CNM Attending Provider Active S tart: November 11, 2024 End: November 11, 2024 Team Status: Inactive Member Role/Relationship Status Dates Dr. Janes Tate MD Primary Care Provider Active Start: November 29, 2024 End: November 29, 2024 Dr. Janes Tate MD Referring Provider Active Start: November 29, 2024 End: November 29, 2024 Dr. Shagufta Berumen MD Attending Provider Active Start: November 29, 2024 End: November 29, 2024 Team Status: Active Member Role/Relationship Status Dates Dr. Janes Tate MD Primary care physician Active Team Status: Inactive Member Role/Relationship Status Dates Dr. Janes Tate MD Primary care physician Active Start: October 18, 2024 End: October 18, 2024 Dr. Janes Tate MD Referring Provider Active Start: October 18, 2024 End: October 18, 2024 Dr. Shagufta Berumen MD Attending physician Active Start: October 18, 2024 End: October 18, 2024 Team Status: Inactive Member Role/Relationship Status Dates Dr. Janes Tate MD Primary care physician Active Start: October 31, 2024 End: October 31, 2024 Dr. Janes Tate MD Referring Provider Active Start: October 31, 2024 End: October 31, 2024 Ghazala Dee CNM Attending physician Active Start: October 31, 2024 End: October 31, 2024 Team Status: Inactive Member Role/Relationship Status Dates Dr. Janes Tate MD Primary care physician Active Start: October 31, 2024 End: October 31, 2024 Ghazala Dee CNM Attending physician Active Start: October 31, 2024 End: October 31, 2024 Team Status: Inactive Member Role/Relationship Status Dates Dr. Janes Tate MD Primary care physician Active Start: November 11, 2024 End: November 11, 2024 Ghazala Dee CNM Attending physician Active Start: November 11, 2024 End: November 11, 2024 Team Status: Inactive Member Role/Relationship Status Dates Dr. Janes Tate MD Primary care physician Active Start: November 29, 2024 End: November 29, 2024 Dr. Janes Tate MD Referring Provider Active Start: November 29, 2024 End: November 29, 2024 Dr. Shagufta Berumen MD Attending physician Active Start: November 29, 2024 End: November 29, 2024 Team Status: Inactive Member Role/Relationship Status Dates Dr. Janes Tate MD Primary care physician Active Start: December 26, 2024 End: December 26, 2024 Dr. Janes Tate MD Referring Provider Active Start: December 26, 2024 End: December 26, 2024 Dr. Emilie Riggs DO Attending physician Active Start: December End: December 26, 2024 Team Status: Inactive Member Role/Relationship Status Dates Dr. Janes Tate MD Primary care physician Active Start: January 16, 2025 End: January 16, 2025 Dr. Janes Tate MD Referring Provider Active Start: January 16, 2025 End: January 16, 2025 Trista Steward NP, CASH APPLICATION CLERK-C Attending physician Active Start: January 16, 2025 End: January 16, 2025 Goals (unrecognized section and content) Type Care Experience Labor Preferences-CB /BF classes: []labor support person: []labor intervention preferences: []pain management options preferred: []cut cord/dad catch: []: []PP control planned: []discussed possible routes of delivery and associated risks: []special requests: [] FOR RECORDS PERTAINING TO PATIENTS WHO ARE OR HAVE BEEN ENROLLED IN A CHEMICAL DEPENDENCY/SUBSTANCEABUSE PROGRAM, SOME INFORMATION MAY BE OMITTED. This clinical summary was aggregated from multiple sources. Caution should be exercised in using it in the provision of clinical care. This summary normalizes information from multiple sources, and as a consequence, information in this document may materially change the coding, format and clinical context of patient data. In addition, data may be omitted in some cases. CLINICAL DECISIONS SHOULD BE BASED ON THE PRIMARY CLINICAL RECORDS. [employer] provides no warranty or guarantee of the accuracy or completeness of information in this document.
[2025-03-11 12:07] LABS: Hematocrit 39.3 % (37-47); Hemoglobin 12.9 g/dL (12.0-15.0); Immature Granulocytes Count 0.080 X10^3/uL (0.0-0.0); Mean Corp Hgb Conc 32.8 g/dL (32-36); Mean Corpuscular Volume 88.9 fL (81-99); Mean Platelet Vol. 11.1 fl (6.2-12.0); NRBC Flagged by Analyzer 0 % (0-5); Platelet Count 292 K/mm3 (150-450); RBC Distribution Width CV 13.5 % (11.6-14.6); RBC Distribution Width SD 44.4 fl (35.1-43.9); Red Blood Count 4.42 M/mm3 (4.2-5.4); White Blood Count 11.3 K/mm3 (4.4-11.0)
[2025-03-11 13:01] LABS: HIV Nonreactive (Nonreactive)
[2025-03-11 13:02] LABS: Syphilis Antibodies Nonreactive (Nonreactive)
[2025-03-11 13:14] LABS: Glucose Challenge Gest 1H 50g 90 mg/dL (70-140)
== END | disposition home or self-care (01) ==
PROVIDERS: Advanced Practice Midwife; PCP Family Medicine Geriatric Medicine; Visit Provider Obstetrics & Gynecology
DX: O09.92 Supervision of high risk pregnancy, unspecified, second trimester (principal); Z3A.00 Weeks of gestation of pregnancy not specified; Z13.1 Encounter for screening for diabetes mellitus
CPT/HCPCS: 36415; 82950; 85025; 86703; 86780